=== PATIENT | female | born 1940 | race Caucasian/White ===

== ENCOUNTER → 2018-01-19 09:18 | Outpatient (CLI) | payer MEDICARE, SELFPAY ==
--- NOTE | 2018-01-19 09:30 | XR_ITS ---
XR DEXA axial skeleton HISTORY: ITS.REASON: POST MENOPAUSAL ORDERING PHYSICIAN: Agustín Gentile MD PATIENT AGE: 77 years COMPARISON: None FINDINGS: The BMD measured at the Left femoral neck is 1.184 g/cm squared with a T score of 1.0. This is considered Normal according to the World Health Organization criteria. Fracture risk is Low. The L1 L4 density has a T score of 6.5.. IMPRESSION: Normal bone density. Recommend follow-up exam December 2019
[2018-01-19 10:35] LABS: Basophils % 0.7 % (0.1-2.0); Eosinophils # 0.2 K/mm3 (0.0-0.4); Eosinophils % 3.5 % (0.1-12.0); Hematocrit 41.8 % (37.0-47.0); Hemoglobin 13.9 g/dL (12.2-16.2); Lymphocytes # 2.3 K/mm3 (0.7-4.5); Lymphocytes % 40.7 K/mm3 (10-50); Mean Corpuscular HGB Conc 33.3 g/dL (31.8-35.4); Mean Corpuscular Hemoglobin 30.1 pg (27.0-31.2); Mean Corpuscular Volume 90.5 fl (81-99); Mean Platelet Volume 7.2 fl (7.4-10.4); Monocytes # 0.3 K/mm3 (0.1-1.0); Monocytes % 4.5 % (1.7-9.3); Neutrophils # 2.9 K/mm3 (1.8-7.8); Neutrophils % 50.6 % (37.0-80.0); Platelet Count 198 K/mm3 (142-424); Red Blood Count 4.62 M/mm3 (4.20-5.40); White Blood Count 5.8 K/mm3 (4.8-10.8)
[2018-01-19 10:43] LABS: Alanine Aminotransferase 45 U/L (12-78); Albumin Level 3.8 gm/dL (3.4-5.0); Alkaline Phosphatase 49 U/L (46-116); Anion Gap 12.9 mEq/L (5-15); Aspartate Amino Transferase 28 U/L (15-37); Bilirubin,Total 0.4 mg/dL (0.2-1.0); Blood Urea Nitrogen 16 mg/dL (7-18); Calcium 8.7 mg/dL (8.5-10.1); Carbon Dioxide 29 mmol/L (21.0-32.0); Chloride 103 mmol/L (98-107); Cholesterol 225 mg/dL (140-200); Estimated Glomerular Filt Rate 53 ml/min (>60); GFR (African American) 65 ML/MIN (>60); Globulin 3.7 gm/dl (1.3-3.2); Glucose 116 mg/dL (74-106); HDL Cholesterol 45 mg/dL (29-89); LDL Cholesterol 132 mg/dL (0-130); Potassium 3.9 mmoL/L (3.5-5.1); Sodium 141 mmol/L (136-145); Total Protein,Serum 7.5 gm/dL (6.4-8.2); Triglycerides 242 mg/dL (30-200); VLDL Cholesterol 48 mg/dL (0-40)
[2018-01-22 12:55] LABS: Vitamin D 25 Hydroxy 39.7 ng/mL (30.0-100.0)
== END ==
PROVIDERS: Family Provider Internal Medicine Adolescent Medicine; PCP Internal Medicine Adolescent Medicine; Visit Provider Internal Medicine Adolescent Medicine
DX: Z13.820 Encounter for screening for osteoporosis (principal); Z78.0 Asymptomatic menopausal state; E78.5 Hyperlipidemia, unspecified; E55.9 Vitamin D deficiency, unspecified
CPT/HCPCS: 36415; 77080; 80053; 80061; 82652; 85025

== ENCOUNTER → 2019-02-11 13:01 | Outpatient (CLI) | payer MEDICARE, SELFPAY ==
[2019-02-11 13:39] LABS: Basophils # 0.1 K/mm3 (0-0.2); Basophils % 0.8 % (0.1-2.0); Eosinophils # 0.3 K/mm3 (0.0-0.4); Eosinophils % 4.3 % (0.1-12.0); Hemoglobin 12.1 g/dL (12.2-16.2); Lymphocytes # 2.3 K/mm3 (0.7-4.5); Lymphocytes % 38.3 % (10-50); Mean Corpuscular HGB Conc 31.9 g/dL (31.8-35.4); Mean Corpuscular Hemoglobin 28.8 pg (27.0-31.2); Mean Corpuscular Volume 90.2 fl (81-99); Mean Platelet Volume 7.7 fl (7.4-10.4); Monocytes # 0.3 K/mm3 (0.1-1.0); Monocytes % 5.6 % (1.7-9.3); Neutrophils # 3.1 K/mm3 (1.8-7.8); Neutrophils % 51.1 % (37.0-80.0); Platelet Count 236 K/mm3 (142-424); Red Blood Count 4.21 M/mm3 (4.20-5.40); Red Cell Distribution Width 14.5 % (11.5-17.5)
[2019-02-11 15:07] LABS: Alanine Aminotransferase 40 U/L (12-78); Albumin Level 4.1 gm/dL (3.4-5.0); Albumin/Globulin Ratio 1.1 (1.1-1.8); Alkaline Phosphatase 47 U/L (46-116); Anion Gap 12.4 mEq/L (5-15); Aspartate Amino Transferase 31 U/L (15-37); Bilirubin,Total 0.4 mg/dL (0.2-1.0); Blood Urea Nitrogen 18 mg/dL (7-18); Calcium 9.1 mg/dL (8.5-10.1); Carbon Dioxide 29 mmol/L (21.0-32.0); Chloride 104 mmol/L (98-107); Chol/HDL Ratio 4.8 (1-3.5); Cholesterol 213 mg/dL (140-200); Creatinine,Serum 0.86 mg/dL (0.55-1.02); Estimated Glomerular Filt Rate 63 ml/min (>60); GFR (African American) 77 ML/MIN (>60); Globulin 3.6 gm/dl (1.3-3.2); Glucose 94 mg/dL (74-106); HDL Cholesterol 44 mg/dL (29-89); LDL Cholesterol 130 mg/dL (0-130); Potassium 4.4 mmoL/L (3.5-5.1); Sodium 141 mmol/L (136-145); Total Protein,Serum 7.7 gm/dL (6.4-8.2); Triglycerides 195 mg/dL (30-200); VLDL Cholesterol 39 mg/dL (0-40)
[2019-02-14 06:11] LABS: Vitamin D 25 Hydroxy 49.8 ng/mL (30.0-100.0)
== END ==
PROVIDERS: Visit Provider Internal Medicine Adolescent Medicine
DX: E55.9 Vitamin D deficiency, unspecified (principal); E78.5 Hyperlipidemia, unspecified
CPT/HCPCS: 36415; 80053; 80061; 82652; 85025

== ENCOUNTER 2020-06-14 18:09 | Emergency (ER) | payer MEDICARE, OTHER, SELFPAY ==
[2020-06-14 18:11] VITALS: BP 140/79; PULSE 77; RESP 18; TEMP 37.1; O2SAT 96; BMI 28.3
--- NOTE | 2020-06-14 18:19 | XR_ITS ---
PROCEDURE: XR CHEST PORTABLE Referring Doctor: Guido Garcia Patient Age:79Y CLINICAL HISTORY: poss covid Weakness. Nausea diarrhea COMPARISON: No exams were available for comparison FINDINGS: AP portable upright CXR. No prior chest film for comparison Of the lungs are well expanded. No prominent findings but however I would question slight hazy appearance towards the right base project over the right anterior 5th rib end. Equivocal feature. Also upper normal markings at the left mid and lower lung field. The apices of lungs are clear unremarkable. The heart is upper normal in size with jackelin and mediastinal structures unremarkable. Normal pulmonary vascularity. No pleural effusions. IMPRESSION: No definitive pneumonia. No definitive acute findings However I would only question possible very subtle hazy appearance towards the lateral right base. Could merely be due to overlapping soft tissue densities, however if covidpositive could cannot exclude very subtle early infiltrate. Dictated by: Alex To MD 06/14/2020 22:00 Alex To MD in [place] 06/14/2020 22:00
[2020-06-14 18:28] LABS: Adenovirus,PCR Not Detected (NotDetected); Bordetella Pertussis Not Detected (NotDetected); Chlamydophila Pneumoniae, PCR Not Detected (NotDetected); Coronavirus 229E Not Detected (NotDetected); Coronavirus NL63 Not Detected (NotDetected); Coronavirus OC43 Not Detected (NotDetected); Coronovirus HKU1,PCR Not Detected (NotDetected); Human Metapneumovirus Not Detected (NotDetected); Influenza A, PCR Not Detected (NotDetected); Influenza AH1, 2009 Not Detected (NotDetected); Influenza AH1, PCR Not Detected (NotDetected); Influenza AH3,PCR Not Detected (NotDetected); Influenza B, PCR Not Detected (NotDetected); Mycoplasma Pneumoniae, PCR Not Detected (NotDetected); Parainfluenza 1, PCR Not Detected (NotDetected); Parainfluenza 2, PCR Not Detected (NotDetected); Parainfluenza 3, PCR Not Detected (NotDetected); Parainfluenza 4, PCR Not Detected (NotDetected); Respiratory Syncytial Virus Not Detected (NotDetected); Rhinovirus/Enterovirus Not Detected (NotDetected)
[2020-06-14 18:31] LABS: Basophils % 0.2 % (0.1-2.0); Eosinophils % 0.1 % (0.1-12.0); Hematocrit 35.1 % (37.0-47.0); Hemoglobin 10.9 g/dL (12.2-16.2); Lymphocytes # 0.9 K/mm3 (0.7-4.5); Lymphocytes % 17.1 % (10-50); Mean Corpuscular HGB Conc 31.1 g/dL (31.8-35.4); Mean Corpuscular Hemoglobin 23.4 pg (27.0-31.2); Mean Corpuscular Volume 75.4 fl (81-99); Mean Platelet Volume 8.9 fl (7.4-10.4); Monocytes # 0.2 K/mm3 (0.1-1.0); Monocytes % 4.4 % (1.7-9.3); Neutrophils % 78.2 % (37.0-80.0); Platelet Count 215 K/mm3 (142-424); Red Blood Count 4.65 M/mm3 (4.20-5.40); White Blood Count 5.1 K/mm3 (4.8-10.8)
--- NOTE | 2020-06-14 18:35 | HMH.EDGENADL ---
ED Disposition Clinical Impression: Viral syndrome, Generalized weakness Disposition: Home, Self-Care Condition on Discharge: Good Instructions: DI for Diarrhea and Traveler's Diarrhea -- Adult Referrals: Agustín Gentile MD [Primary Care Provider] - Forms: Transfer Record - ED - Critical Care Critical Care Time: No Attestation: On 06/14/20, the high probability of a clinically significant, sudden or life threatening deterioration of the following system(s) required my full and direct attention, intervention and personal management. The time I documented below is in addition to time spent performing reported procedures but includes the following listed in this critical care notation. Medical Decision Making - Medical Records Medical records reviewed: Yes: I reviewed the patient's medical records. - Augustine Inquiry Pt receiving controlled substance: No Vital Signs: 06/14/20 18:11 Temperature 98.8 F Temperature Source Oral Pulse Rate [Right] 77 Respiratory Rate 18 Blood Pressure [Right Arm] 140/79 Blood Pressure Mean [Right Arm] 99 Blood Pressure Source [Right Arm] Automatic Cuff Blood Pressure Position [Right Arm] Sitting 02 Sat by Pulse Oximetry 96 Oxygen Delivery Method Room Air - Lab Data Lab Results 06/14/20 18:20: WBC 5.1, RBC 4.65, Hgb 10.9 L, Hct 35.1 L, MCV 75.4 L, MCH 23.4 L, MCHC 31.1 L, RDW 19.0 H, Plt Count 215, MPV 8.9, Neut % (Auto) 78.2, Lymph % (Auto) 17.1, [place] % (Auto) 4.4, Eos % (Auto) 0.1, Baso % (Auto) 0.2, Neut # (Auto) 4.0, Lymph # (Auto) 0.9, [place] # (Auto) 0.2, Eos # (Auto) 0.0, Baso # (Auto) 0.0 06/14/20 18:20: Sodium 134 L, Potassium 3.6, Chloride 100, Carbon Dioxide 22, Anion Gap 15.6 H, BUN 16, Creatinine 0.90, Estimated Creat Clear 54, Estimated GFR 60, Est GFR ( Amer) 73, Glucose 247 H, Calcium 8.8, Total Bilirubin 0.4, AST 43 H, ALT 33, Alkaline Phosphatase 52, Total Protein 7.5, Albumin 4.1, Globulin 3.4 H, Albumin/Globulin Ratio 1.2, Amylase 78, Lipase 253 06/14/20 18:20: SARS-CoV-2 IgG Ab (Rapid) Negative, SARS-CoV-2 IgM Ab (Rapid) Negative Result diagrams: 06/14/20 18:20 06/14/20 18:20 Orders (Tests/Meds): ED MEDICATIONS Generic Name Dose Route Start Last Admin Trade Name Jacquelyn PRN Reason Stop Dose Admin Sodium Chloride 1,000 mls @ 999 mls/hr 06/14/20 18:30 06/14/20 18:27 Sod Chlor 0.9% 1000ml Bag IV 06/14/20 19:30 999 mls/hr .Q1H1M LOVE Administration ORDERS Category Date Time Status Chest XR -- portable [XR chest portable] Stat Exams 06/14/20 18:19 Taken Full Resp Panel w/COVID ([facility]) Routine Lab 06/14/20 18:20 Received - Reevaluation(s) Time: 19:21 Reevaluation #1: On reevaluation, patient is feeling better. Remained hemodynamic stable. There is no desaturations or respiratory distress. Patient needs to follow-up with PCP. She also had a coronavirus swab on Monday and is pending results. Patient needs to quarantine per CDC guidelines. Given strict return precautions. Verbalized understanding. Medical Decision Narrative: 79-year-old female presented with generalized weakness and diarrhea. Patient did have exposure to coronavirus. Hemodynamically stable at this time. Work-up initiated. General Adult HPI - General Chief complaint: Nausea/Vomiting/Diarrhea Stated complaint: diarrhea Time Seen by Provider: 06/14/20 18:15 Mode of Arrival: EMS Limitations: No Limitations Description of Symptoms (Recalled from ER Triage Doc. by RN): pt advises she has been feeling weak and been having diarrhea for the past 3-4 days. advises her son is currently admitted to the covid unit and they had been around each other approx 7-10 days ago - History of Present Illness HPI narrative: This is a 79-year-old female presented to the emergency department with generalized weakness. The patient has also had some diarrhea nausea. Patient states that she has had a positive sick contact for coronavirus, her son had tested positive and w
[2020-06-14 18:39] LABS: Chloride 100 mmol/L (98-107)
[2020-06-14 18:40] LABS: Potassium 3.6 mmoL/L (3.5-5.1); Sodium 134 mmol/L (136-145)
[2020-06-14 18:42] LABS: Amylase 78 U/L (30-110); Blood Urea Nitrogen 16 mg/dl (7-17); Creatinine Clearance Estimated 54 mL/min (50-200); Estimated Glomerular Filt Rate 60 ml/min (>60); GFR (African American) 73 ML/MIN (>60)
[2020-06-14 18:43] LABS: Alanine Aminotransferase 33 U/L (12-78); Albumin Level 4.1 g/dl (3.5-5.0); Albumin/Globulin Ratio 1.2 (1.1-1.8); Alkaline Phosphatase 52 U/L (38-126); Anion Gap 15.6 mEq/L (5-15); Aspartate Amino Transferase 43 U/L (14-36); Bilirubin,Total 0.4 mg/dl (0.2-1.3); Calcium 8.8 mg/dl (8.4-10.2); Carbon Dioxide 22 mmol/L (22.0-30.0); Globulin 3.4 g/dL (1.3-3.2); Glucose 247 mg/dl (74-100); Lipase 253 U/L (23-300); Total Protein,Serum 7.5 g/dl (6.3-8.2)
[2020-06-14 18:58] LABS: Coronavirus 19 IgG Antibody Negative (Negative); Coronavirus 19 IgM Antibody Negative (Negative)
[2020-06-14 19:50] LABS: Coronavirus 19, PCR Detected (NotDetected)
[2020-06-14 19:52] VITALS: BP 138/81; PULSE 96; RESP 16; TEMP 37.2; O2SAT 97
== END 2020-06-14 19:56 | disposition home or self-care (01) ==
PROVIDERS: Emergency Provider Emergency Medicine; PCP Internal Medicine Adolescent Medicine
DX: B34.9 Viral infection, unspecified (principal); Z01.84 Encounter for antibody response examination; R73.9 Hyperglycemia, unspecified
CPT/HCPCS: 71045; 80053; 82150; 83690; 85025; 86328; 87581; 87633; 87798; 96365; 99283

== ENCOUNTER 2020-06-21 07:07 | Inpatient (IN) | payer MEDICARE, OTHER, SELFPAY ==
[2020-06-21] VITALS (24 sets, daily range): BP systolic 117–154; BP diastolic 52–91; PULSE 75–106; RESP 15–22; TEMP 35.8–37.1; O2SAT 91–97; BMI 28.3; BMI 27.8; BMI 26.6
--- NOTE | 2020-06-21 07:16 | XR_ITS ---
PROCEDURE: XR CHEST PORTABLE CLINICAL HISTORY: SOA w COVID 19 COMPARISON: CR XR CHEST PORTABLE from 06/14/2020 FINDINGS: The cardiomediastinal silhouette and pulmonary vascularity are within normal limits. Patchy peripheral ground-glass attenuation noted in both mid and lower lung zones greater on the right compared to the left suspicious for Covid19 pneumonia. There are some atelectatic changes in the mid lungs on both sides. No acute bony abnormalities. IMPRESSION: Bilateral lower lobe pneumonia with atelectatic changes Dictated by: Levar Tucker MD 06/21/2020 07:53 Levar Tucker MD in [place] 06/21/2020 07:53
[2020-06-21 07:21] LABS: Microscopic, Urine URINE MICROSCOPIC (MICROSCOPIC)
--- NOTE | 2020-06-21 07:23 | HMH.EDWEAK ---
ED Disposition Clinical Impression: Pneumonia due to COVID-19 virus, Acute blood loss anemia (ABLA), Bacteriuria Disposition: Admitted As Inpatient Condition on Discharge: Fair Referrals: Agustín Gentile MD [Primary Care Provider] - - Critical Care Critical Care Time: No Attestation: On 06/21/20, the high probability of a clinically significant, sudden or life threatening deterioration of the following system(s) required my full and direct attention, intervention and personal management. The time I documented below is in addition to time spent performing reported procedures but includes the following listed in this critical care notation. Medical Decision Making - Medical Records Medical records reviewed: Yes: I reviewed the patient's medical records. - Augustine Inquiry Pt receiving controlled substance: No Vital Signs: 06/21/20 07:03 06/21/20 07:21 06/21/20 07:45 Temperature 98.4 F Temperature Source Oral Pulse Rate [Right] 94 H 91 H 89 Respiratory Rate 22 Blood Pressure [Right Arm] 140/80 128/54 L 143/64 H Blood Pressure Mean [Right Arm] 100 78 90 Blood Pressure Source [Right Arm] Automatic Cuff Automatic Cuff Blood Pressure Position [Right Arm] Sitting Sitting 02 Sat by Pulse Oximetry 94 L 94 L 96 Oxygen Delivery Method Room Air Room Air Room Air 06/21/20 08:07 06/21/20 08:30 06/21/20 09:00 Temperature Temperature Source Pulse Rate [Right] 89 89 90 Respiratory Rate Blood Pressure [Right Arm] 131/64 139/65 136/54 L Blood Pressure Mean [Right Arm] 86 89 81 Blood Pressure Source [Right Arm] Automatic Cuff Automatic Cuff Automatic Cuff Blood Pressure Position [Right Arm] Sitting Sitting Sitting 02 Sat by Pulse Oximetry 95 96 93 L Oxygen Delivery Method Room Air Room Air Room Air 06/21/20 09:32 Temperature Temperature Source Pulse Rate [Right] 76 Respiratory Rate Blood Pressure [Right Arm] 117/54 L Blood Pressure Mean [Right Arm] 75 Blood Pressure Source [Right Arm] Automatic Cuff Blood Pressure Position [Right Arm] Sitting 02 Sat by Pulse Oximetry 92 L Oxygen Delivery Method Room Air - Lab Data Lab results reviewed: Yes: I reviewed the patient's lab results. Lab Results 06/21/20 07:00: Urine Color Yellow, Urine Appearance Clear, Urine pH 7.0, Ur Specific [place] <= 1.005, Urine Protein Negative, Urine Glucose (UA) Negative, Urine Ketones Negative, Urine Blood Negative, Urine Nitrate Positive, Urine Bilirubin Negative, Urine Urobilinogen 4.0, Ur Leukocyte Esterase Negative, Urine RBC None, Urine WBC Occasional, Ur Squamous Epith Cells None, Urine Bacteria 3+ 06/21/20 07:10: WBC 9.6, RBC 3.83 L, Hgb 8.7 L, Hct 28.0 L, MCV 73.3 L, MCH 22.7 L, MCHC 31.0 L, RDW 18.8 H, Plt Count 383, MPV 7.0 L, Neut % (Auto) 82.3 H, Lymph % (Auto) 12.7, [place] % (Auto) 4.2, Eos % (Auto) 0.6, Baso % (Auto) 0.2, Neut # (Auto) 7.9 H, Lymph # (Auto) 1.2, [place] # (Auto) 0.4, Eos # (Auto) 0.1, Baso # (Auto) 0.0, ESR > 140 H 06/21/20 07:10: Sodium 132 L, Potassium 3.4 L, Chloride 97 L, Carbon Dioxide 27, Anion Gap 11.4, BUN 16, Creatinine 0.60, Estimated Creat Clear 54, Estimated GFR 96, Est GFR ( Amer) 116, Glucose 136 H, Calcium 8.8, Total Bilirubin 0.5, AST 56 H, ALT 39, Alkaline Phosphatase 60, C-Reactive Protein 84.4 H, Total Protein 7.3, Albumin 3.5, Globulin 3.8 H, Albumin/Globulin Ratio 0.9 L, Procalcitonin 0.169 06/21/20 07:58: Stool Occult Blood Positive A 06/21/20 07:58: Lactate 1.5 Result diagrams: 06/21/20 07:10 06/21/20 07:10 Orders (Tests/Meds): ED MEDICATIONS Generic Name Dose Route Start Last Admin Trade Name Freq PRN Reason Stop Dose Admin Ascorbic Acid 500 mg 06/21/20 13:00 Ascorbic Acid 500mg Tab PO 07/21/20 12:59 QID LOVE Dexamethasone Sodium Phosphate 6 mg 06/22/20 09:00 Dexamethasone 4mg/Ml 1ml Vial IV 07/22/20 08:59 DAILY [facility] Enoxaparin Sodium 40 mg 06/21/20 09:45 Enoxaparin 40mg/0.4ml Syringe SQ 07/21/20 09:44 DAILY LOVE Ergocalcif
[2020-06-21 07:27] LABS: Appearance,Urine CLEAR (Clear); Bilirubin,Urine Negative (Negative); Blood, Urine Negative (Negative); Color,Urine YELLOW (Yellow); Glucose,Urine (UA) Negative (Negative); Ketones,Urine Negative (Negative); Leukocyte Esterase,Urine Negative (Negative); Nitrate,Urine POSITIVE (Negative); Protein,Urine Negative (Negative); Specific Gravity, Urine <= 1.005 (1.005-1.030)
[2020-06-21 07:34] LABS: Basophils % 0.2 % (0.1-2.0); Eosinophils # 0.1 K/mm3 (0.0-0.4); Eosinophils % 0.6 % (0.1-12.0); Hemoglobin 8.7 g/dL (12.2-16.2); Lymphocytes # 1.2 K/mm3 (0.7-4.5); Lymphocytes % 12.7 % (10-50); Mean Corpuscular Hemoglobin 22.7 pg (27.0-31.2); Mean Corpuscular Volume 73.3 fl (81-99); Monocytes # 0.4 K/mm3 (0.1-1.0); Monocytes % 4.2 % (1.7-9.3); Neutrophils # 7.9 K/mm3 (1.8-7.8); Neutrophils % 82.3 % (37.0-80.0); Platelet Count 383 K/mm3 (142-424); Red Blood Count 3.83 M/mm3 (4.20-5.40); Red Cell Distribution Width 18.8 % (11.5-17.5); White Blood Count 9.6 K/mm3 (4.8-10.8)
[2020-06-21 07:37] LABS: Alanine Aminotransferase 39 U/L (12-78); Albumin Level 3.5 g/dl (3.5-5.0); Albumin/Globulin Ratio 0.9 (1.1-1.8); Alkaline Phosphatase 60 U/L (38-126); Anion Gap 11.4 mEq/L (5-15); Aspartate Amino Transferase 56 U/L (14-36); Bilirubin,Total 0.5 mg/dl (0.2-1.3); Blood Urea Nitrogen 16 mg/dl (7-17); Calcium 8.8 mg/dl (8.4-10.2); Carbon Dioxide 27 mmol/L (22.0-30.0); Chloride 97 mmol/L (98-107); Creatinine Clearance Estimated 54 mL/min (50-200); Estimated Glomerular Filt Rate 96 ml/min (>60); GFR (African American) 116 ML/MIN (>60); Globulin 3.8 g/dL (1.3-3.2); Glucose 136 mg/dl (74-100); Potassium 3.4 mmoL/L (3.5-5.1); Sodium 132 mmol/L (136-145); Total Protein,Serum 7.3 g/dl (6.3-8.2)
[2020-06-21 07:37] LABS: Bacteria,Urine 3+ /lpf; WBC,Urine Occasional #/hpf (0-3)
[2020-06-21 07:43] LABS: C-Reactive Protein 84.4 mg/L (0-4)
[2020-06-21 07:57] LABS: Procalcitonin 0.169 ng/mL (0.0-2.0)
[2020-06-21 08:04] LABS: Occult Blood,Stool Positive (Negative)
[2020-06-21 08:06] LABS: Erythrocyte Sedimentation Rate > 140 mm/hr (0-30)
[2020-06-21 08:13] LABS: Lactic Acid 1.5 mmol/L (0.7-2.1)
--- NOTE | 2020-06-21 09:37 | PC.NURSE ---
Dr Obrien speaking with Dr Fernandez at this time.
--- NOTE | 2020-06-21 11:14 | PC.NURSE ---
attempted to call report to second floor, nurse assigned to pt is getting report on another pt. Staff states they will have her call me.
--- NOTE | 2020-06-21 12:01 | PC.NURSE ---
attempted to call report to second floor, receiving nurse states she is in another pts room and will call me back
--- NOTE | 2020-06-21 12:09 | PC.NURSE ---
report given to Mary StewartRN
--- NOTE | 2020-06-21 12:15 | HMH.PHAINT ---
MEDICATION RECONCILIATION COMPLETED ON PATIENT USING EXTERNAL FILL HISTORY FROM PHARMACY. -BINA FERNÁNDEZ, TONIAD
--- NOTE | 2020-06-21 12:19 | PC.NURSE ---
Dr. Fernandez at BS
--- NOTE | 2020-06-21 12:36 | PC.NURSE ---
Pt arrived to the floor at this time.
--- NOTE | 2020-06-21 13:56 | HMH.HP ---
*Admission Date: 06/21/20 *Chief complaint: fatigue, weakness, COVID-19 *History of present illness: Ms. Alba is a pleasant 79-year-old female who presented to the ER today due to significant fatigue and weakness. Came into the ER on the and was diagnosed with COVID-19. Had presented with GI symptoms, diarrhea, nausea, fatigue. Has been tolerating good fluid intake but poor appetite. Intermittent fever over the past 2 nights. Denies significant respiratory distress. Has minimal dry cough. Overall just feels ill and fatigued. On assessment today, she is unable to walk more than a few steps before having to sit because of exhaustion. Is stable on room air satting in the low 90s. Tachycardic on exam. Family who she lives with and who cares for her is also ill with COVID-19 and unable to care for her at this time. Patient is unable to care for herself in the home setting and was therefore admitted for observation and treatment of her COVID-19 symptoms. On my interview, she reports being thirsty, fatigued, but denies significant GI or respiratory symptoms. [facility] History *Have you ever received a pneumonia vaccine?: Yes *Have you received a flu vaccine this season?: Yes Other Medical History: Reports: Cataracts, Thyroid Disease Other Surgeries: Yes: Thyroidectomy - *Social History Last grade of school completed: 9th or 10th Smoking Status: Never smoker Alcohol Intake: never *Occupational Status:: retired Housing: house Household Members: none *Travel in the last 8 weeks: None Review of Systems - *Neurologic Reports weakness, Denies seizure-like activity Meds Home Medications Medication Instructions Recorded Confirmed Type Metoprolol Tartrate 50 mg PO BID 06/21/20 06/21/20 History Pantoprazole Sodium 20 mg PO DAILYP PRN 06/21/20 06/21/20 History Allergies Allergy/AdvReac Type Severity Reaction Status Date / Time cephalexin [From Keflex] Allergy Verified 06/21/20 07:08 Exam Vital signs and Labs for Last 24 Hours: Temp Pulse Resp BP Pulse Ox 98.4 F 98 H 22 139/52 L 92 L 06/21/20 13:09 06/21/20 13:09 06/21/20 13:09 06/21/20 13:09 06/21/20 12:00 Laboratory Results - last 24 hr 06/21/20 07:00: Urine Color Yellow, Urine Appearance Clear, Urine pH 7.0, Ur Specific [place] <= 1.005, Urine Protein Negative, Urine Glucose (UA) Negative, Urine Ketones Negative, Urine Blood Negative, Urine Nitrate Positive, Urine Bilirubin Negative, Urine Urobilinogen 4.0, Ur Leukocyte Esterase Negative, Urine RBC None, Urine WBC Occasional, Ur Squamous Epith Cells None, Urine Bacteria 3+ 06/21/20 07:10: WBC 9.6, RBC 3.83 L, Hgb 8.7 L, Hct 28.0 L, MCV 73.3 L, MCH 22.7 L, MCHC 31.0 L, RDW 18.8 H, Plt Count 383, MPV 7.0 L, Neut % (Auto) 82.3 H, Lymph % (Auto) 12.7, [place] % (Auto) 4.2, Eos % (Auto) 0.6, Baso % (Auto) 0.2, Neut # (Auto) 7.9 H, Lymph # (Auto) 1.2, [place] # (Auto) 0.4, Eos # (Auto) 0.1, Baso # (Auto) 0.0, ESR > 140 H 06/21/20 07:10: Sodium 132 L, Potassium 3.4 L, Chloride 97 L, Carbon Dioxide 27, Anion Gap 11.4, BUN 16, Creatinine 0.60, Estimated Creat Clear 54, Estimated GFR 96, Est GFR ( Amer) 116, Glucose 136 H, Calcium 8.8, Total Bilirubin 0.5, AST 56 H, ALT 39, Alkaline Phosphatase 60, C-Reactive Protein 84.4 H, Total Protein 7.3, Albumin 3.5, Globulin 3.8 H, Albumin/Globulin Ratio 0.9 L, Procalcitonin 0.169 06/21/20 07:10: Blood Type Confirm O Positive 06/21/20 07:58: Stool Occult Blood Positive A 06/21/20 07:58: Lactate 1.5 06/21/20 10:00: Blood Type O Positive, Antibody Screen Negative, Crossmatch (AHG) See Detail I & O for Last 24 hours: Intake & Output 06/18/20 06/19/20 06/20/20 06/21/20 23:59 23:59 23:59 23:59 Intake Total 1000 / 1000 Balance 1000 / 1000 Weight 75.75 kg
--- NOTE | 2020-06-21 14:03 | HMH.HP ---
*Admission Date: 06/21/20 *Chief complaint: SOA, fatigue, Covid-19 *History of present illness: Ms. Alba is a pleasant 79-year-old female who presented to the ER today due to significant fatigue and weakness. Came into the ER on the and was diagnosed with COVID-19. Had presented with GI symptoms, diarrhea, nausea, fatigue. Has been tolerating good fluid intake but poor appetite. Intermittent fever over the past 2 nights. Denies significant respiratory distress. Has minimal dry cough. Overall just feels ill and fatigued. On assessment today, she is unable to walk more than a few steps before having to sit because of exhaustion. Is stable on room air satting in the low 90s. Tachycardic on exam. Family who she lives with and who cares for her is also ill with COVID-19 and unable to care for her at this time. Labs remarkable for an acute worsening of her anemia in the interim since last visit. Hemoccult was positive. Patient is unable to care for herself in the home setting and was therefore admitted for observation and treatment of her COVID-19 symptoms. On my interview, she reports being thirsty, fatigued, but denies significant GI or respiratory symptoms. [facility] History Medical History: Reports:: Hypertension *Have you ever received a pneumonia vaccine?: Yes *Have you received a flu vaccine this season?: Yes Other Medical History: Reports: Cataracts, Thyroid Disease Other Surgeries: Yes: Thyroidectomy - *Social History Last grade of school completed: 9th or 10th Smoking Status: Never smoker Alcohol Intake: never *Occupational Status:: retired Housing: house Household Members: none *Travel in the last 8 weeks: None Family Hx:: No significant family history Review of Systems - *Neurologic Reports weakness, Denies seizure-like activity Meds Home Medications Medication Instructions Recorded Confirmed Type Metoprolol Tartrate 50 mg PO BID 06/21/20 06/21/20 History Pantoprazole Sodium 20 mg PO DAILYP PRN 06/21/20 06/21/20 History Allergies Allergy/AdvReac Type Severity Reaction Status Date / Time cephalexin [From Keflex] Allergy Verified 06/21/20 07:08 Exam Vital signs and Labs for Last 24 Hours: Temp Pulse Resp BP Pulse Ox 98.4 F 98 H 22 139/52 L 92 L 06/21/20 13:06/21/20 13:06/21/20 13:06/21/20 13:06/21/20 12:00 Laboratory Results - last 24 hr 06/21/20 07:00: Urine Color Yellow, Urine Appearance Clear, Urine pH 7.0, Ur Specific [place] <= 1.005, Urine Protein Negative, Urine Glucose (UA) Negative, Urine Ketones Negative, Urine Blood Negative, Urine Nitrate Positive, Urine Bilirubin Negative, Urine Urobilinogen 4.0, Ur Leukocyte Esterase Negative, Urine RBC None, Urine WBC Occasional, Ur Squamous Epith Cells None, Urine Bacteria 3+ 06/21/20 07:10: WBC 9.6, RBC 3.83 L, Hgb 8.7 L, Hct 28.0 L, MCV 73.3 L, MCH 22.7 L, MCHC 31.0 L, RDW 18.8 H, Plt Count 383, MPV 7.0 L, Neut % (Auto) 82.3 H, Lymph % (Auto) 12.7, [place] % (Auto) 4.2, Eos % (Auto) 0.6, Baso % (Auto) 0.2, Neut # (Auto) 7.9 H, Lymph # (Auto) 1.2, [place] # (Auto) 0.4, Eos # (Auto) 0.1, Baso # (Auto) 0.0, ESR > 140 H 06/21/20 07:10: Sodium 132 L, Potassium 3.4 L, Chloride 97 L, Carbon Dioxide 27, Anion Gap 11.4, BUN 16, Creatinine 0.60, Estimated Creat Clear 54, Estimated GFR 96, Est GFR ( Amer) 116, Glucose 136 H, Calcium 8.8, Total Bilirubin 0.5, AST 56 H, ALT 39, Alkaline Phosphatase 60, C-Reactive Protein 84.4 H, Total Protein 7.3, Albumin 3.5, Globulin 3.8 H, Albumin/Globulin Ratio 0.9 L, Procalcitonin 0.169 06/21/20 07:10: Blood Type Confirm O Positive 06/21/20 07:58: Stool Occult Blood Positive A 06/21/20 07:58: Lactate 1.5 06/21/20 10:00: Blood Type O Positive, Antibody Screen Negative, Crossmatch (AHG) See Detail I & O for Last 24 hours: Intake & Output 06/18/20 06/19/20 06/20/20 06/21/20 23:59 23:59 23:59 23:59 Intake Total 1000 / 1000 Balance 1000 / 1000 Weight 75.75 kg - Constitutional
--- NOTE | 2020-06-21 15:16 | P.CONPHA_ITS ---
[facility] Pharmacy VTE Monitoring - Patient Demographics Admission date: 06/21/20 Report Date: 06/21/20 Time: 15:16 Allergies/Adverse Reactions: Patient Allergies cephalexin [From Keflex] Allergy (Verified 06/21/20 07:08) Height: 1.65 m Weight: 75.75 kg Patient Problems: Current Active Problems Viral syndrome (Acute) Generalized weakness (Acute) Pneumonia due to COVID-19 virus (Acute) Acute blood loss anemia (ABLA) (Acute) Bacteriuria (Acute) Hypertension (Chronic) - VTE Risk Labs: VTE Related Lab Results Hgb 8.7 g/dL (12.2-16.2) L 06/21/20 07:10 Hct 28.0 % (37.0-47.0) L 06/21/20 07:10 Plt Count 383 K/mm3 (142-424) 06/21/20 07:10 BUN 16 mg/dl (7-17) 06/21/20 07:10 Creatinine 0.60 mg/dl (0.52-1.04) 06/21/20 07:10 Estimated Creat Clear 54 mL/min (50-200) 06/21/20 07:10 VTE Score: 3 VTE Risk Level: Low Risk - Prophylaxis VTE Prophylaxis Ordered?: Yes Types of VTE Prophylaxis: TEDS Knee High Location of Applied Device: Bilateral Lower Extremeties
[2020-06-21 18:47] LABS: Hemoglobin 8.9 g/dL (12.2-16.2)
[2020-06-21 18:49] LABS: Hematocrit 28.6 % (37.0-47.0)
--- NOTE | 2020-06-21 19:27 | PC.NURSE ---
Patient is currently sleeping Neuro: Alert and oriented x 4 Pulm: Room air, lungs clear. Respirations even. Sattin' 95% on room air. Cardiac: No issues. GI: patient has had 1 bowel movement today, stool was dark and foul. C/o slight nausea today. : Hernandez catheter in place. 1600 cc of urine output today. SKIN: no issues or concerns. Patient stated during assessment that she wished to be a DNI, however, patient states that she wanted to change her decision and be intubated should the need arise, being a modified code. Advised patient to discuss this with MD and case management in the morning. Patient was anxious upon admission about her condition. Patient was reassured and has since done much better.
[2020-06-22] VITALS: BP 138/78; PULSE 77; RESP 20; TEMP 36.9; O2SAT 94
[2020-06-22 04:00] VITALS: BP 126/70; PULSE 83; RESP 17; TEMP 36.4; O2SAT 96
[2020-06-22 05:23] VITALS: BMI 26.9
[2020-06-22 07:17] LABS: Basophils % 0.3 % (0.1-2.0); Hemoglobin 8.6 g/dL (12.2-16.2); Lymphocytes # 1.1 K/mm3 (0.7-4.5); Lymphocytes % 13.8 % (10-50); Mean Corpuscular HGB Conc 31.7 g/dL (31.8-35.4); Mean Corpuscular Hemoglobin 23.5 pg (27.0-31.2); Mean Corpuscular Volume 74.1 fl (81-99); Mean Platelet Volume 7.9 fl (7.4-10.4); Monocytes # 0.4 K/mm3 (0.1-1.0); Neutrophils # 6.1 K/mm3 (1.8-7.8); Neutrophils % 80.9 % (37.0-80.0); Platelet Count 391 K/mm3 (142-424); Red Blood Count 3.65 M/mm3 (4.20-5.40); Red Cell Distribution Width 18.4 % (11.5-17.5); White Blood Count 7.6 K/mm3 (4.8-10.8)
[2020-06-22 07:29] LABS: Alanine Aminotransferase 31 U/L (12-78); Albumin Level 2.8 g/dl (3.5-5.0); Albumin/Globulin Ratio 0.8 (1.1-1.8); Alkaline Phosphatase 51 U/L (38-126); Anion Gap 9.4 mEq/L (5-15); Aspartate Amino Transferase 38 U/L (14-36); Bilirubin,Total 0.4 mg/dl (0.2-1.3); Blood Urea Nitrogen 15 mg/dl (7-17); Carbon Dioxide 24 mmol/L (22.0-30.0); Chloride 106 mmol/L (98-107); Creatinine Clearance Estimated 51 mL/min (50-200); Estimated Glomerular Filt Rate 118 ml/min (>60); GFR (African American) 143 ML/MIN (>60); Globulin 3.3 g/dL (1.3-3.2); Glucose 136 mg/dl (74-100); Magnesium 2.1 mg/dl (1.6-2.3); Potassium 3.4 mmoL/L (3.5-5.1); Sodium 136 mmol/L (136-145); Total Protein,Serum 6.1 g/dl (6.3-8.2)
[2020-06-22 08:00] VITALS: BP 125/66; PULSE 80; RESP 18; TEMP 36.5; O2SAT 95
--- NOTE | 2020-06-22 08:35 | HMH.ACPN2 ---
Internal Medicine - PN: Subj *Date: 06/22/20 *Time: 08:35 Interval history: Overall patient feels better than yesterday. No significant diarrhea or vomiting. Feels very weak. Breathing seems to be improved per patient's report. She is alert and pleasant. Exam Vital signs and Labs for Last 24 Hours: Temp Pulse Resp BP Pulse Ox 97.5 F L 83 17 126/70 96 06/22/20 04:00 06/22/20 04:00 06/22/20 04:00 06/22/20 04:00 06/22/20 04:00 Laboratory Results - last 24 hr 06/21/20 07:10: Blood Type Confirm O Positive 06/21/20 10:00: Blood Type O Positive, Antibody Screen Negative, Crossmatch (AHG) See Detail 06/21/20 18:41: Hgb 8.9 L, Hct 28.6 L 06/22/20 06:33: WBC 7.6, RBC 3.65 L, Hgb 8.6 L, Hct 27.0 L, MCV 74.1 L, MCH 23.5 L, MCHC 31.7 L, RDW 18.4 H, Plt Count 391, MPV 7.9, Neut % (Auto) 80.9 H, Lymph % (Auto) 13.8, [place] % (Auto) 5.0, Eos % (Auto) 0.0 L, Baso % (Auto) 0.3, Neut # (Auto) 6.1, Lymph # (Auto) 1.1, [place] # (Auto) 0.4, Eos # (Auto) 0.0, Baso # (Auto) 0.0 06/22/20 06:33: Sodium 136, Potassium 3.4 L, Chloride 106, Carbon Dioxide 24, Anion Gap 9.4, BUN 15, Creatinine 0.50 L, Estimated Creat Clear 51, Estimated GFR 118, Est GFR ( Amer) 143 D, Glucose 136 H, Calcium 8.0 L, Magnesium 2.1, Total Bilirubin 0.4, AST 38 H D, ALT 31, Alkaline Phosphatase 51, Total Protein 6.1 L, Albumin 2.8 L D, Globulin 3.3 H, Albumin/Globulin Ratio 0.8 L I & O for Last 24 hours: Intake & Output 06/19/20 06/20/20 06/21/2021 11:59 11:59 11:59 11:59 Intake Total 3052 / 3052 Output Total 3560 / 3560 Balance -508 / -508 Weight 170 lb 161 lb 6 oz Microbiology Reports for the Last 24 Hours: Microbiology 06/21/20 07:00 Urine,Catheterized Urine Culture - Preliminary NO GROWTH AFTER 24 HOURS Narrative: Patient is pleasant, alert, oriented x3. Oropharynx clear, no JVD. Heart rate regular. Lungs have good air expansion. Abdomen soft and nontender, no masses. Skin is slightly pale but dry and intact and warm. Good distal perfusion. Assessment and Plan (1) Pneumonia due to COVID-19 virus Status: Acute Category: Medical Code(s): U07.1 - COVID-19; J12.82 - Pneumonia due to coronavirus disease 2018 (2) Acute blood loss anemia (ABLA) Status: Acute Category: Medical Code(s): D62 - Acute posthemorrhagic anemia (3) Generalized weakness Status: Acute Category: Medical Code(s): R53.1 - Weakness (4) Viral syndrome Status: Acute Category: Medical Code(s): B34.9 - Viral infection, unspecified (5) Hypertension Status: Chronic Qualifiers: Hypertension type: essential hypertension Qualified Code(s): I10 - Essential (primary) hypertension Category: Medical Code(s): I10 - Essential (primary) hypertension - Assessment and plan all Dx Assessment and Plan for all problems:: Seems to be recovering well but slowly from Covid pneumonitis and viral infection. PT/OT evaluation for possible need for skilled rehab stay for short-term issues given her family's current status with COVID-19. Anemia did not respond very much to 1 unit of packed cells. Does not seem to be actively bleeding. Observe tomorrow with CBC. Continue Protonix for upper GI tract protection.
--- NOTE | 2020-06-22 14:09 | HMH.PTEV ---
Physical Therapy Evaluation Rehab PT IP Evaluation Start: 06/22/20 11:24 Freq: ONCE Status: Active Protocol: Document 06/22/20 14:03 SURINDERHUMBERTO (Rec: 06/22/20 14:09 SURINDERHUMBERTO [id number]) Subjective/History History History Ms. Alba is a pleasant 79 -year-old female who presented to the ER today due to significant fatigue and weakness. Came into the ER on the and was diagnosed with COVID-19. Had presented with GI symptoms, diarrhea, nausea, fatigue. Has been tolerating good fluid intake but poor appetite. Intermittent fever over the past 2 nights. Denies significant respiratory distress. Has minimal dry cough. Overall just feels ill and fatigued. On assessment today, she is unable to walk more than a few steps before having to sit because of exhaustion. Is stable on room air satting in the low 90s. Tachycardic on exam. Family who she lives with and who cares for her is also ill with COVID-19 and unable to care for her at this time. Labs remarkable for an acute worsening of her anemia in the interim since last visit. Hemoccult was positive. Patient is unable to care for herself in the home setting and was therefore admitted for observation and treatment of her COVID-19 symptoms. Subjective Subjective Pt does have reports of fatigue after standing 2-3 minutes Rehab PT IP Eval Objective Appearance Patient Behavior Appropriate,Cooperative Patient Orientation Person,Place,Time Difficulty following instructions none Speech Pattern Clear,Appropriate Ambulation Patient Able to Ambulate Yes Ambulation Observation IP General Gait Pattern Observation Shuffling Step Ambulation Distance (feet) 5 Ambulation Assistive Device
[2020-06-22 14:20] VITALS: BMI 26.8
--- NOTE | 2020-06-22 15:06 | HMH.OTEV ---
OT Inpatient Evaluation Rehab OT IP Evaluation Start: 06/22/20 11:24 Freq: ONCE Status: Complete Protocol: Document 06/22/20 14:57 [facility] (Rec: 06/22/20 15:06 [facility] [id number]) Rehab OT IP Assessment Subjective History Pt oriented x 3 on arrival. Pt agreeable to engage in therapy evaluation. Pt was admitted via ED on 06/21/20 due to increased fatigue, weakness, and SOA from COVID- 19. Pt reports prior to being hospitalized she lived at home alone. Pt claims prior to hopsitalization she was independent with all ADLs and IADL's. Pt did not require AE during ambulation and she still drove. Subjective I am already tired. Pt stood in between bed and chair during transfer for ~2 minutes and reported she started feeling weak. Objective Patient Orientation Person,Place,Day of Month Upper Extremity Gross ROM WFL Bed Mobility bed mobility-scooting,bed mobility - supine/sit,bed mobility - rolling Assist Level Supervision/Stand by Transfer Training Sit/Stand Transfer Assist Level Contact Guard/Hand Hold Chair Transfer Ability Contact Guard/Hand Hold Chair Transfer Technique Sit to/from Ambulatory Chair Transfer Assistive Devices None Rehab OT IP prob,goals,plan Problems Date of Evaluation: 06/22/20 OT IP Problems Bed Mobility,Transfers,Gait, Balance,Self care,Safety Rehab Potential Rehab Potential Good Equipment Needs Assistive Devices Rolling / Wheeled Walker Plan OT intervention Plan Bed Mobility,Transfers,Gait, Balance,Self care,Safety, Therapeutic Exercise OT Plan Frequency Daily Duration LOS Discharge Goals Bed Mobility Ability Standby Assistance Sit to Stand Chair Transfer Ability Supervision/Stand by Chair Transfer Ability Supervision/Stand by Chair Transfer Technique Sit to/from Ambulatory Chair Transfer Assistive Devices Rolling Walker Self care skills fully toilet trained,uses utensils to feed self Feeding Ability Independen
[2020-06-22 15:36] VITALS: BP 132/72; PULSE 79; RESP 18; TEMP 36.6; O2SAT 97
--- NOTE | 2020-06-22 19:17 | PC.NURSE ---
PATIENT REMAINS A&O X4, LUNGS: WHEEZING HEARD, PULSES EQUAL. PATIENT UP TO CHAIR, TOLERATED WELL. PATIENT SAT ON SIDE OF BED FOR EACH MEAL, TOLERATED WELL. NO NEW CONCERNS DURING THIS RN SHIFT.
[2020-06-22 20:00] VITALS: BP 145/70; PULSE 83; RESP 17; TEMP 36.6; O2SAT 93
[2020-06-23] VITALS (7 sets, daily range): BP systolic 128–168; BP diastolic 70–93; PULSE 74–85; RESP 17–20; TEMP 36.4–37; O2SAT 93–97; BMI 27.1
--- NOTE | 2020-06-23 04:22 | PC.NURSE ---
PT. C/O H/A AT BEGINNING OF SHIFT; TX WITH TYLENOL PER JUL. PT. HAS NOT C/O N/V/D, SOA OR DIZZINESS. DIMINISHED LUNG SOUNDS T/O BILAT. NO COUGH REPORTED 96-97% O2 SAT ON RA.
[2020-06-23 05:39] LABS: Basophils % 0.2 % (0.1-2.0); Eosinophils % 0.4 % (0.1-12.0); Hematocrit 26.5 % (37.0-47.0); Hemoglobin 8.3 g/dL (12.2-16.2); Lymphocytes % 12.7 % (10-50); Mean Corpuscular HGB Conc 31.3 g/dL (31.8-35.4); Mean Corpuscular Hemoglobin 23.3 pg (27.0-31.2); Mean Corpuscular Volume 74.4 fl (81-99); Mean Platelet Volume 7.6 fl (7.4-10.4); Monocytes # 0.5 K/mm3 (0.1-1.0); Monocytes % 6.2 % (1.7-9.3); Neutrophils # 6.5 K/mm3 (1.8-7.8); Neutrophils % 80.6 % (37.0-80.0); Platelet Count 445 K/mm3 (142-424); Red Blood Count 3.57 M/mm3 (4.20-5.40); Red Cell Distribution Width 18.6 % (11.5-17.5); White Blood Count 8.1 K/mm3 (4.8-10.8)
[2020-06-23 05:50] LABS: Alanine Aminotransferase 35 U/L (12-78); Albumin Level 2.7 g/dl (3.5-5.0); Albumin/Globulin Ratio 0.8 (1.1-1.8); Alkaline Phosphatase 50 U/L (38-126); Anion Gap 9.6 mEq/L (5-15); Aspartate Amino Transferase 42 U/L (14-36); Bilirubin,Total 0.4 mg/dl (0.2-1.3); Blood Urea Nitrogen 18 mg/dl (7-17); Carbon Dioxide 23 mmol/L (22.0-30.0); Chloride 106 mmol/L (98-107); Creatinine Clearance Estimated 52 mL/min (50-200); Estimated Glomerular Filt Rate 96 ml/min (>60); GFR (African American) 116 ML/MIN (>60); Globulin 3.2 g/dL (1.3-3.2); Glucose 136 mg/dl (74-100); Potassium 3.6 mmoL/L (3.5-5.1); Sodium 135 mmol/L (136-145); Total Protein,Serum 5.9 g/dl (6.3-8.2)
--- NOTE | 2020-06-23 09:06 | PC.NURSE ---
f/c d/c'd at this time. patient instructed to call for assistance to bathroom. patient verbalized understanding. nonskid socks placed on patient.
--- NOTE | 2020-06-23 10:25 | SW/DCPLANNER ---
Addendum entered by Love Randall 06/24/20 09:38: PATIENT IS DISCHARGING TO [facility] TODAY AND WILL BE SKILLED UNDER HER MEDICARE BENEFIT..... Addendum entered by Love Randall 06/24/20 08:24: SPOKE WITH PATIENT VIA TELEPHONE THIS MORNING AND TOLD HER THAT I HAD GOTTEN A MESSAGE FROM [facility] AND THEY CAN NOT TAKE PATIENT UNLESS SHE IS 14 DAYS STATUS POST COVID AND SHE IS ONLY TEN DAYS... I TOLD PATIENT AND SHE REQUESTED ONE OF THE [place] [facility]AC[facility]ITIES....I DID SEND IT TO [facility] AND WHEN DR LOBATO MADE ROUNDS HE ASKED IF SHE WOULD BE INTERESTED IN [facility] AND TOLD HER HE GOES THERE AND SHE IS ALLOWING ME TO SEND IT THERE.. WAITING ON A CALL TO SEE IF ACCEPTED, SHE IS MEDICALLY READY TO MAKE A MOVE SOMETIME TODAY IF ACCEPTED BY EITHER OF THE SKILLED FACILITIES... Addendum entered by Love Randall 06/23/20 13:36: [facility] DOES NOT HAVE ANY FEMALE BEDS BUT PATIENT ASKED ABOUT [facility], I HAVE SENT IT TO [facility] [place] AND SENT A MESSAGE AND THEY DO HAVE BEDS.. WAITING TO HEAR TO WHETHER ACCEPTED OR NOT.... Original Note: SPOKE WITH PATIENT VIA TELEPHONE R/T POSITIVE COVID.... PT STATED PATIENT DID WELL BUT VERY WEAK AND COULD BENEFIT FROM SOME SKILLED REHAB SERVICES...I ASKED HER IF SHE WANTED TO GO SOMEWHERE AND SHE STATED YES FOR SHORT TERM.. HER PLANS ARE TO RETURN HOME AFTER SHE IS WELL ENOUGH TO DO SO...I SENT REFERRAL TO [facility] AND THEY DO NOT HAVE ANY BEDS.. WILL REACH OUT TO HER AGAIN TO SEE WHERE ELSE SHE WOULD LIKE TO GO....WILL FOLLOW UP THIS AFTERNOON...
--- NOTE | 2020-06-23 11:13 | HMH.ACPN2 ---
Internal Medicine - PN: Subj *Date: 06/23/20 *Time: 11:13 Interval history: Ms. Alba continues to be quite fatigued this morning. Still has Hernandez catheter in place. While able to work with physical therapy yesterday, is unable to get to the bedside chair by herself. Lives alone. Had a daughter staying with her prior to admission but her daughter also has Covid and is quite weak. Does not feel comfortable going home. Tolerating p.o. intake. No nausea vomiting or diarrhea. No shortness of breath. Review of labs shows urine from admission is now growing bacteria concerning for UTI. Antibiotics initiated this morning. Patient afebrile Exam Vital signs and Labs for Last 24 Hours: Temp Pulse Resp BP Pulse Ox 98.6 F 74 18 131/70 95 06/23/20 08:00 06/23/20 08:00 06/23/20 08:00 06/23/20 08:00 06/23/20 08:00 Laboratory Results - last 24 hr 06/23/20 05:16: WBC 8.1, RBC 3.57 L, Hgb 8.3 L, Hct 26.5 L, MCV 74.4 L, MCH 23.3 L, MCHC 31.3 L, RDW 18.6 H, Plt Count 445 H, MPV 7.6, Neut % (Auto) 80.6 H, Lymph % (Auto) 12.7, Lee % (Auto) 6.2, Eos % (Auto) 0.4, Baso % (Auto) 0.2, Neut # (Auto) 6.5, Lymph # (Auto) 1.0, Lee # (Auto) 0.5, Eos # (Auto) 0.0, Baso # (Auto) 0.0 06/23/20 05:16: Sodium 135 L, Potassium 3.6, Chloride 106, Carbon Dioxide 23, Anion Gap 9.6, BUN 18 H, Creatinine 0.60, Estimated Creat Clear 52, Estimated GFR 96, Est GFR ( Amer) 116, Glucose 136 H, Calcium 8.0 L, Total Bilirubin 0.4, AST 42 H, ALT 35, Alkaline Phosphatase 50, Total Protein 5.9 L, Albumin 2.7 L, Globulin 3.2, Albumin/Globulin Ratio 0.8 L I & O for Last 24 hours: Intake & Output 06/20/20 06/21/20 06/22/20 06/23/20 23:59 23:59 23:59 23:59 Intake Total 2048 / 2408 2444 / 2444 1621 / 1621 Output Total 3200 / 3200 910 / 910 775 / 775 Balance -1152 / -792 1534 / 1534 846 / 846 Weight 72.773 kg 73 kg 74.021 kg Microbiology Reports for the Last 24 Hours: Microbiology 06/21/20 07:56 Blood Blood Culture - Preliminary NO GROWTH AFTER 48 HOURS 06/21/20 07:58 Blood Blood Culture - Preliminary NO GROWTH AFTER 48 HOURS 06/21/20 07:00 Urine,Catheterized Urine Culture - Preliminary Gram Negative Rods - Constitutional no acute distress Comments: Quite fatigued, - *Routine HEENT Exam Head: Present: normocephalic Eye: Present: EOMI, PERRL ENT: Present: mucous membranes moist - *Routine Neck Exam Present: supple. Absent: lymphadenopathy - *Routine Respiratory Exam Present: CTA bilaterally - *Routine Cardiovascular Exam Present: RRR - *Routine Abdominal Exam Present: soft, normoactive bowel sounds. Absent: tenderness - *Routine Extremities Exam Absent: cyanosis, clubbing, edema - Routine Back/Spine/Pelvis Exam Back/Spine: Absent: CVA tenderness - *Routine Skin Exam Present: warm. Absent: rash - *Routine Neurological Exam Present: alert, oriented X3 Assessment and Plan (1) Pneumonia due to COVID-19 virus Status: Acute Category: Medical Code(s): U07.1 - COVID-19; J12.82 - Pneumonia due to coronavirus disease 2019 (2) Acute blood loss anemia (ABLA) Status: Acute Category: Medical Code(s): D62 - Acute posthemorrhagic anemia (3) Generalized weakness Status: Acute Category: Medical Code(s): R53.1 - Weakness (4) Viral syndrome Status: Acute Category: Medical Code(s): B34.9 - Viral infection, unspecified (5) Hypertension Status: Chronic Qualifiers: Hypertension type: essential hypertension Qualified Code(s): I10 - Essential (primary) hypertension Category: Medical Code(s): I10 - Essential (primary) hypertension (6) UTI (urinary tract infection) Status: Acute Qualifiers: Urinary tract infection type: acute cystitis Hematuria presence: without hematuria Qualified Code(s): N30.00 - Acute cystitis without hematuria Category: Medical Code(s):
--- NOTE | 2020-06-23 22:27 | PC.NURSE ---
PATIENT IS A7O X4, LUNGS ARE DIMINISHED WITH AUDIBLE WHEEZING, PULSES ARE EQUAL. DURING PATIENT ROUNDS THIS RN NOTICED THAT PATIENT SEEMS TO BE SOA. THIS RN ASSESSED O2, PATIENT WAS 96% RA. THIS RN INQUIRED IF PATIENT FELT SOA, PATIENT DENIED ANY SOA. PATIENT DID STATE 3X DURING THIS RN SHIFT THAT SHE HAD EPISODES OF FEELING WEEK. THIS RN EXPLAINED THAT SHE WOULD CONTINUE TO HAVE THESE SYMPTOMS HER BODY HEALS, PATIENT VERBALIZED AN UNDERSTANDING. PATIENT HAS HAD A HEALTHY APPETITE DURING THIS RN SHIFT. NO OTHER CONCERNS AT THIS TIME.
[2020-06-24 04:00] VITALS: BP 153/84; PULSE 82; RESP 19; TEMP 36.6; O2SAT 92
[2020-06-24 06:27] LABS: Hematocrit 27.1 % (37.0-47.0); Hemoglobin 8.1 g/dL (12.2-16.2)
[2020-06-24 06:58] LABS: Alanine Aminotransferase 40 U/L (12-78); Albumin Level 2.8 g/dl (3.5-5.0); Albumin/Globulin Ratio 0.9 (1.1-1.8); Alkaline Phosphatase 53 U/L (38-126); Anion Gap 9.4 mEq/L (5-15); Aspartate Amino Transferase 49 U/L (14-36); Bilirubin,Total 0.3 mg/dl (0.2-1.3); Blood Urea Nitrogen 18 mg/dl (7-17); Carbon Dioxide 24 mmol/L (22.0-30.0); Chloride 105 mmol/L (98-107); Creatinine Clearance Estimated 52 mL/min (50-200); Estimated Glomerular Filt Rate 80 ml/min (>60); GFR (African American) 97 ML/MIN (>60); Globulin 3.1 g/dL (1.3-3.2); Glucose 102 mg/dl (74-100); Potassium 3.4 mmoL/L (3.5-5.1); Sodium 135 mmol/L (136-145); Total Protein,Serum 5.9 g/dl (6.3-8.2)
[2020-06-24 06:59] LABS: Magnesium 2.4 mg/dl (1.6-2.3)
[2020-06-24 07:37] VITALS: BP 173/99; PULSE 74; RESP 20; TEMP 36.4; O2SAT 91
[2020-06-24 07:54] VITALS: BMI 27.2
[2020-06-24 08:00] VITALS: PULSE 74; RESP 20; O2SAT 91
--- NOTE | 2020-06-24 08:27 | HMH.DCSUM ---
General - General Admission date:: 06/21/20 Discharge date: 06/24/20 HPI HPI: Ms. Alba is a pleasant 79-year-old female who presented to the ER today due to significant fatigue and weakness. Came into the ER on the and was diagnosed with COVID-19. Had presented with GI symptoms, diarrhea, nausea, fatigue. Has been tolerating good fluid intake but poor appetite. Intermittent fever over the past 2 nights. Denies significant respiratory distress. Has minimal dry cough. Overall just feels ill and fatigued. On assessment today, she is unable to walk more than a few steps before having to sit because of exhaustion. Is stable on room air satting in the low 90s. Tachycardic on exam. Family who she lives with and who cares for her is also ill with COVID-19 and unable to care for her at this time. Labs remarkable for an acute worsening of her anemia in the interim since last visit. Hemoccult was positive. Patient is unable to care for herself in the home setting and was therefore admitted for observation and treatment of her COVID-19 symptoms. On my interview, she reports being thirsty, fatigued, but denies significant GI or respiratory symptoms. Hospital Course Hospital Course: Patient was admitted, given 1 unit of packed cells which really did not improve her anemia, and had no further evidence of GI bleeding. She did not require oxygen support over most of her hospital stay but was extremely weak given her COVID-19 infection. All of her family has Covid and they are unable to give her a lot of physical/nutritional therapy support at this point, and it was decided she would benefit from skilled care evaluation and PT agreed that she would need several weeks of skilled PT/OT to resume her normal functioning. She is officially out of Covid quarantine today and can be transferred to skilled care. We will continue vitamin therapy, Levaquin for UTI and dexamethasone for 3 days. We will transfer to the [facility] today. Regular medications will continue. We will monitor her anemia with a BMP and a CBC in 3 days. We will follow her per our regular [facility] rounds. Objective Vital signs: Temp Pulse Resp BP Pulse Ox 97.5 F L 74 20 173/99 H 91 L 06/24/20 07:37 06/24/20 07:37 06/24/20 07:37 06/24/20 07:37 06/24/20 07:37 no acute distress Comments: Mildly pale and fatigued but otherwise is alert and oriented. - *Routine HEENT Exam Head: Present: normocephalic Eye: Present: EOMI, PERRL ENT: Present: mucous membranes moist - *Routine Neck Exam Present: supple - *Routine Respiratory Exam Present: CTA bilaterally - *Routine Cardiovascular Exam Present: RRR - *Routine Abdominal Exam Present: soft, normoactive bowel sounds. Absent: tenderness - *Routine Extremities Exam Absent: cyanosis, clubbing, edema - *Routine Skin Exam Present: warm. Absent: rash - Detailed Eye Exam Eyelids: Bilateral normal inspection Results Labs on day of discharge: Labs from last 24 hours 06/24/20 06/24/20 06/24/20 05:50 05:50 05:50 Hgb 8.1 L Hct 27.1 L Sodium 135 L Potassium 3.4 L Chloride 105 Carbon Dioxide 24 Anion Gap 9.4 BUN 18 H Creatinine 0.70 Estimated Creat Clear 52 Estimated GFR 80 Est GFR ( Amer) 97 Glucose 102 H Calcium 8.0 L Magnesium 2.4 H D Total Bilirubin 0.3 AST 49 H ALT 40 Alkaline Phosphatase 53 Total Protein 5.9 L Albumin 2.8 L Globulin 3.1 Albumin/Globulin Ratio 0.9 L Preliminary micro results at discharge 06/21/20 07:56 Blood Culture - Preliminary Blood NO GROWTH AFTER 48 HOURS 06/21/20 07:58 Blood Culture - Preliminary Blood NO GROWTH AFTER 48 HOURS 06/21/20 07:00 Urine Culture - Preliminary Urine,Catheterized Gram Negative Rods DS: Diagnosis - Discharge Diagnosis (1) Pneumonia due to COVID-19 virus Status: Res
== END 2020-06-24 11:05 | DRG 177 ==
LOC: ER 09:56 → 2ND 13:32
PROVIDERS: Admitting Provider Internal Medicine Adolescent Medicine; Emergency Provider Emergency Medicine; PCP Internal Medicine Adolescent Medicine; Visit Provider Internal Medicine Adolescent Medicine
DX: U07.1 COVID-19 (principal); J12.82 Pneumonia due to coronavirus disease 2019; D62 Acute posthemorrhagic anemia; N39.0 Urinary tract infection, site not specified; E86.0 Dehydration; I10 Essential (primary) hypertension; Z79.899 Other long term (current) drug therapy; Z88.1 Allergy status to other antibiotic agents
CPT/HCPCS: 36415; 71045; 80053; 81001; 82272; 83605; 83735; 84145; 85014; 85018; 85025; 85651; 86140; 86850; 87040; 87086; 87088; 87186; 96365; 96375; 97110; 97116; 97161; 97166; 97530; 99284; G0328; J1956; J2405; P9016

== ENCOUNTER → 2021-07-19 15:56 | Outpatient (CLI) | payer MEDICARE, OTHER, SELFPAY ==
--- NOTE | 2021-07-19 16:12 | XR_ITS ---
FINAL REPORT TECHNIQUE: Chest PA & Lateral CLINICAL HISTORY: ACUTE BRONCHOPNEUMONIA, WHEEZING COMPARISON: June 21, 2020 FINDINGS: 2 views of the chest were performed. The heart size is normal. The mediastinum is within normal limits. There are chronic changes at the lung bases. There are no pleural effusions. The previously noted bilateral airspace infiltrates are longer seen. There is no pneumothorax. The bony thorax appears intact. IMPRESSION: Previously noted airspace infiltrates are no longer seen. Reviewed, Interpreted and Dictated by Wesley Lux MD Transcribed by Samreen Ragland Authenticated by Wesley Lux MD on 07/19/2021 04:58:44 PM [facility]
[2021-07-19 17:07] LABS: Basophils # 0.1 K/mm3 (0-0.2); Basophils % 0.7 % (0.1-2.0); Eosinophils # 0.7 K/mm3 (0.0-0.4); Eosinophils % 7.1 % (0.1-12.0); Hematocrit 43.5 % (37.0-47.0); Lymphocytes # 2.5 K/mm3 (0.7-4.5); Lymphocytes % 23.8 % (10-50); Mean Corpuscular HGB Conc 32.2 g/dL (31.8-35.4); Mean Corpuscular Hemoglobin 27.1 pg (27.0-31.2); Mean Corpuscular Volume 84.2 fl (81-99); Mean Platelet Volume 8.2 fl (7.4-10.4); Monocytes # 0.5 K/mm3 (0.1-1.0); Monocytes % 5.2 % (1.7-9.3); Neutrophils # 6.5 K/mm3 (1.8-7.8); Neutrophils % 63.1 % (37.0-80.0); Platelet Count 260 K/mm3 (142-424); Red Blood Count 5.16 M/mm3 (4.20-5.40); Red Cell Distribution Width 19.5 % (11.5-17.5); White Blood Count 10.3 K/mm3 (4.8-10.8)
[2021-07-19 18:13] LABS: Alanine Aminotransferase 29 U/L (12-78); Albumin Level 4.7 g/dl (3.5-5.0); Albumin/Globulin Ratio 1.6 (1.1-1.8); Alkaline Phosphatase 58 U/L (38-126); Anion Gap 13.2 mEq/L (5-15); Aspartate Amino Transferase 42 U/L (14-36); Bilirubin,Total 0.5 mg/dl (0.2-1.3); Blood Urea Nitrogen 17 mg/dl (7-17); Calcium 9.5 mg/dl (8.4-10.2); Carbon Dioxide 28 mmol/L (22.0-30.0); Chloride 99 mmol/L (98-107); Estimated Glomerular Filt Rate 80 ml/min (>60); GFR (African American) 97 ML/MIN (>60); Globulin 2.9 g/dL (1.3-3.2); Glucose 106 mg/dl (74-100); Potassium 4.2 mmoL/L (3.5-5.1); Sodium 136 mmol/L (136-145); Total Protein,Serum 7.6 g/dl (6.3-8.2)
== END ==
PROVIDERS: PCP Internal Medicine Adolescent Medicine; Visit Provider Internal Medicine Adolescent Medicine
DX: R06.2 Wheezing (principal); J18.0 Bronchopneumonia, unspecified organism
CPT/HCPCS: 36415; 71046; 80053; 85025

== ENCOUNTER → 2021-08-03 07:47 | Outpatient (CLI) | payer MEDICARE, OTHER, SELFPAY ==
[2021-08-03 08:40] VITALS: PULSE 78; PULSE 80
== END ==
PROVIDERS: PCP Internal Medicine Adolescent Medicine; Visit Provider Internal Medicine Adolescent Medicine
DX: R06.2 Wheezing (principal)
CPT/HCPCS: 94060; 94618; 94640; 94727; 94729

== ENCOUNTER → 2022-05-09 10:23 | Outpatient (CLI) | payer MEDICARE, OTHER, SELFPAY ==
[2022-05-09 11:14] LABS: Basophils # 0.1 K/mm3 (0-0.2); Basophils % 0.6 % (0.1-2.0); Eosinophils # 0.2 K/mm3 (0.0-0.4); Eosinophils % 2.3 % (0.1-12.0); Hematocrit 24.1 % (37.0-47.0); Hemoglobin 7.4 g/dL (12.2-16.2); Lymphocytes # 1.5 K/mm3 (0.7-4.5); Lymphocytes % 17.7 % (10-50); Mean Corpuscular HGB Conc 30.6 g/dL (31.8-35.4); Mean Platelet Volume 8.3 fl (7.4-10.4); Monocytes # 0.3 K/mm3 (0.1-1.0); Monocytes % 3.8 % (1.7-9.3); Neutrophils # 6.6 K/mm3 (1.8-7.8); Neutrophils % 75.6 % (37.0-80.0); Platelet Count 427 K/mm3 (142-424); Red Blood Count 3.88 M/mm3 (4.20-5.40); Red Cell Distribution Width 18.8 % (11.5-17.5); White Blood Count 8.7 K/mm3 (4.8-10.8)
[2022-05-09 12:05] LABS: Alanine Aminotransferase 17 U/L (12-78); Albumin Level 4.5 g/dl (3.5-5.0); Albumin/Globulin Ratio 1.8 (1.1-1.8); Alkaline Phosphatase 68 U/L (38-126); Anion Gap 15.1 mEq/L (5-15); Aspartate Amino Transferase 28 U/L (14-36); Bilirubin,Total 0.4 mg/dl (0.2-1.3); Blood Urea Nitrogen 26 mg/dl (7-17); Calcium 9.6 mg/dl (8.4-10.2); Carbon Dioxide 24 mmol/L (22.0-30.0); Chloride 102 mmol/L (98-107); Estimated Glomerular Filt Rate 60 ml/min (>60); GFR (African American) 72 ML/MIN (>60); Globulin 2.5 g/dL (1.3-3.2); Glucose 132 mg/dl (74-100); Magnesium 1.5 mg/dl (1.6-2.3); Potassium 4.1 mmoL/L (3.5-5.1); Sodium 137 mmol/L (136-145)
[2022-05-09 12:15] LABS: NT Pro Brain Natriuretic Pep. 147 pg/mL (0-450)
[2022-05-09 12:21] LABS: Troponin I < 0.01 ng/ml (0.00-0.034)
[2022-05-09 12:22] LABS: Free Thyroxine Index 3.2 ug/dL (5.93-13.13); T4 (Thyroxine) 10.3 ug/dl (5.53-11.0); Triiodothryronine (T3) Uptake 31 % (23.5-40.5)
[2022-05-09 12:23] LABS: 25-OH Vitamin D, Total 53.7 ng/mL (30-100)
[2022-05-09 12:35] LABS: Thyroid Stimulating Hormone 6.85 uIU/mL (0.465-4.68)
[2022-05-09 12:55] LABS: Vitamin B12 > 1000 pg/mL (239-931)
== END ==
PROVIDERS: PCP Internal Medicine Adolescent Medicine; Visit Provider Internal Medicine Adolescent Medicine
DX: R06.09 Other forms of dyspnea (principal); R00.2 Palpitations; Z86.16 Personal history of COVID-19
CPT/HCPCS: 36415; 80053; 82306; 82607; 83735; 83880; 84436; 84443; 84479; 84484; 85025

== ENCOUNTER 2022-05-11 16:44 | Emergency (ER) | payer MEDICARE, SELFPAY ==
[2022-05-11] VITALS (15 sets, daily range): BP systolic 138–174; BP diastolic 62–85; PULSE 68–86; RESP 18; TEMP 36.4–36.8; O2SAT 98–100; BMI 26.2
--- NOTE | 2022-05-11 17:30 | XR_ITS ---
PROCEDURE INFORMATION: Exam: XR Chest Exam date and time: 05/11/2022 5:38 PM Age: 81 years old Clinical indication: Other: Weakness TECHNIQUE: Imaging protocol: Radiologic exam of the chest. Views: 2 views. COMPARISON: CR XR CHEST 2V 07/19/2021 4:14 PM FINDINGS: Lungs: Normal pulmonary expansion. Pulmonary vasculature grossly normal. No gross pulmonary infiltrates or edema pattern. Mild chronic linear scarring or subsegmental atelectasis in the left base unchanged back to 06/14/2020. Pleural spaces: No pleural effusion. No pneumothorax. Heart/Mediastinum: Heart size normal. No tracheal/mediastinal shift. Bones/joints: No acute osseous abnormalities are identified. Mild thoracic spondylosis. IMPRESSION: No acute thoracic process.
[2022-05-11 17:42] LABS: Basophils # 0.1 K/mm3 (0-0.2); Basophils % 0.4 % (0.1-2.0); Eosinophils # 0.1 K/mm3 (0.0-0.4); Eosinophils % 1.2 % (0.1-12.0); Hematocrit 21.5 % (37.0-47.0); Lymphocytes # 1.6 K/mm3 (0.7-4.5); Lymphocytes % 13.7 % (10-50); Mean Corpuscular HGB Conc 30.4 g/dL (31.8-35.4); Mean Corpuscular Volume 62.3 fl (81-99); Mean Platelet Volume 7.7 fl (7.4-10.4); Monocytes # 0.5 K/mm3 (0.1-1.0); Monocytes % 4.7 % (1.7-9.3); Neutrophils # 9.2 K/mm3 (1.8-7.8); Platelet Count 408 K/mm3 (142-424); Red Blood Count 3.45 M/mm3 (4.20-5.40); White Blood Count 11.6 K/mm3 (4.8-10.8)
[2022-05-11 17:47] LABS: Chloride 102 mmol/L (98-107); Potassium 3.6 mmoL/L (3.5-5.1); Sodium 135 mmol/L (136-145)
[2022-05-11 17:50] LABS: Alanine Aminotransferase 19 U/L (12-78); Albumin Level 4.1 g/dl (3.5-5.0); Albumin/Globulin Ratio 1.6 (1.1-1.8); Alkaline Phosphatase 56 U/L (38-126); Anion Gap 12.6 mEq/L (5-15); Aspartate Amino Transferase 28 U/L (14-36); Blood Urea Nitrogen 25 mg/dl (7-17); Calcium 9.7 mg/dl (8.4-10.2); Carbon Dioxide 24 mmol/L (22.0-30.0); Creatinine Clearance Estimated 48 mL/min (50-200); Estimated Glomerular Filt Rate 69 ml/min (>60); GFR (African American) 83 ML/MIN (>60); Globulin 2.5 g/dL (1.3-3.2); Glucose 114 mg/dl (74-100); Total Protein,Serum 6.6 g/dl (6.3-8.2)
[2022-05-11 17:52] LABS: Bilirubin,Total 0.1 mg/dl (0.2-1.3)
[2022-05-11 17:55] LABS: Hemoglobin 6.5 g/dL (12.2-16.2)
--- NOTE | 2022-05-11 17:55 | PC.NURSE ---
aware of hemoglobin of 6.5
--- NOTE | 2022-05-11 18:24 | ECG_ITS ---
APPROVED REPORT Exam: Resting ECG HR:69 bpm ECG Measurements Heart Rate 69 AXES VA 163 P 19 QRSd 89 QRS 2 QT 384 T 40 QTc 402 Conclusion SINUS RHYTHM WITH OCCASIONAL SUPRAVENTRICULAR PREMATURE COMPLEXES BORDERLINE ECG UNCONFIRMED REPORT Electronically signed by : Agustín Gentile MD 05/13/2022 16:53:44
--- NOTE | 2022-05-11 19:45 | HMH.EDGENADL ---
Discharge Plan Disposition Patient Disposition: Home, Self-Care Condition: Fair Prescriptions Prescriptions: New ferrous sulfate 325 mg (65 mg iron) tablet 325 mg PO DAILY Qty: 30 0RF No Action metoprolol tartrate 50 MG tablet 50 mg PO BID pantoprazole 20 MG tablet,delayed release (DR/EC) 20 mg PO DAILYP PRN (Reason: Acid Reflux) famotidine 20 MG tablet 20 mg PO BID 0RF ascorbic acid (vitamin C) 500 MG tablet 500 mg PO QID 0RF pantoprazole 40 MG tablet,delayed release (DR/EC) 40 mg PO HS 0RF metoprolol tartrate 50 MG tablet 50 mg PO BID 0RF ergocalciferol (vitamin D2) 50,000 UNIT capsule 50,000 unit PO WEEKLY 0RF zinc sulfate 220 MG capsule 220 mg PO DAILY 0RF levofloxacin 500 MG tablet 500 mg PO DAILY Qty: 7 0RF dexamethasone 6 MG tablet 6 mg PO BID Qty: 6 0RF aspirin 81 MG tablet,delayed release (DR/EC) 81 mg PO DAILY Qty: 30 0RF Referrals Follow up/Referrals: Agustín Gentile MD [Primary Care Provider] - See instructions Clinical Impressions Clinical Impression: Iron deficiency anemia Instructions Patient Instructions: DI for Iron Deficiency Anemia-Adult Discharge ED Provider: Abimael Escobar General Adult HPI General Chief complaint: Weakness Stated complaint: passed out weakness, Possible Anemia Time Seen by Provider: 05/11/22 17:20 Mode of Arrival: Wheelchair Source of Information: Patient and Relative Limitations: No Limitations Description of Symptoms (Recalled from ER Triage Doc. by RN): c/o weakness and passing out prior to arrival. PT states that she was walking from her living room to her kitchen when she felt dizzy, sat in the chair and the next thing she knows she is waking up on the floor and started vomiting. Pt states she thinks just slid out of the chair. Pt states she was unable to get off the floor after this episode but she only laid on the floor for a minute until her son arrived. States she has been seeing for anemia workup. History of Present Illness HPI narrative: Patient is an 81-year-old female past medical history of acute blood loss anemia, COVID who presents with concern for weakness. She says that she has been increasingly more weak. She says that this has been going on for quite a while but is gotten substantially worse over the last couple months. She says that she did actually pass out earlier today because she was so weak. She says that she was walking across her living room to her kitchen started feeling dizzy and she sat down on the chair and then subsequently passed out. She felt nauseous afterwards and did have an episode of vomiting. She says that she was unable to get herself off the floor because she felt so weak. She denies any fever or chills. Denies any shortness of breath. She says that she is currently having a work-up for anemia. She says that this happened in the past but she never really got any answers as to why it was happening. Related Data Home Medications Medication Instructions Recorded Confirmed metoprolol tartrate 50 mg tablet 50 mg PO BID Hypertension 06/21/20 06/21/20 pantoprazole 20 mg tablet,delayed 20 mg PO DAILYP PRN Acid Reflux 06/21/20 06/21/20 release Previous Rx's Medication Instructions Recorded ascorbic acid (vitamin C) 500 mg 500 mg PO QID 06/24/20 tablet aspirin 81 mg tablet,delayed 81 mg PO DAILY ##30 06/24/20 release dexamethasone 6 mg tablet 6 mg PO BID #6 tabs 06/24/20 ergocalciferol (vitamin D2) 1,250 50,000 unit PO WEEKLY 06/24/20 mcg (50,000 unit) capsule famotidine 20 mg tablet 20 mg PO BID 06/24/20 levofloxacin 500 mg tablet 500 mg PO DAILY #7 tabs 06/24/20 metoprolol tartrate 50 mg tablet 50 mg PO BID 06/24/20 pantoprazole 40 mg tablet,delayed 40 mg PO HS 06/24/20 release zinc sulfate 50 mg zinc (220 mg) 220 mg PO DAILY 06/24/20 capsule ferrous sulfate 325 mg (65 mg 325 mg PO DAILY #30 tabs 05/11/22 iron) tablet
--- NOTE | 2022-05-11 21:26 | PC.NURSE ---
pt refused to wait for post 1 hour vitala and wanted to go home
== END 2022-05-11 21:29 | disposition home or self-care (01) ==
PROVIDERS: Emergency Provider Student in an Organized Health Care Education/Training Program; PCP Internal Medicine Adolescent Medicine
DX: R11.2 Nausea with vomiting, unspecified (principal); R50.9 Fever, unspecified; R42 Dizziness and giddiness; R53.1 Weakness; K21.9 Gastro-esophageal reflux disease without esophagitis; Z86.16 Personal history of COVID-19; J43.9 Emphysema, unspecified; Z79.899 Other long term (current) drug therapy; Z88.8 Allergy status to other drugs, medicaments and biological substances
CPT/HCPCS: 36415; 71046; 80053; 85025; 86850; 93005; P9016

== ENCOUNTER 2022-05-13 15:16 | Inpatient (IN) | payer MEDICARE, OTHER, SELFPAY ==
[2022-05-13] VITALS (19 sets, daily range): BP systolic 124–156; BP diastolic 60–98; PULSE 72–88; RESP 16–18; TEMP 36.5–37.1; O2SAT 96–100; BMI 25.7; BMI 25.9
--- NOTE | 2022-05-13 16:10 | XR_ITS ---
FINAL REPORT TECHNIQUE: Single view chest CLINICAL HISTORY: cp COMPARISON: 05/11/2022 FINDINGS: A single view of the chest was obtained. The heart and mediastinum are within normal limits. The lungs are clear. There is no pneumothorax. Osseous structures are unremarkable. IMPRESSION: No acute cardiopulmonary process. Reviewed, Interpreted and Dictated by Oswaldo Potter III, MD Transcribed by Lili Solano Authenticated and . [facility]
--- NOTE | 2022-05-13 16:12 | HMH.EDGENADL ---
Discharge Plan Disposition Patient Disposition: Admitted As Inpatient Chief Complaint: Weakness Clinical Impressions Clinical Impression: UGIB (upper gastrointestinal bleed), Melena Discharge ED Provider: Juarez Tucker General Adult HPI General Chief complaint: Weakness Stated complaint: Weakness Time Seen by Provider: 05/13/22 16:00 Mode of Arrival: Wheelchair Limitations: No Limitations Description of Symptoms (Recalled from ER Triage Doc. by RN): Pt advises she had bloodwork the other day and was anemic and has been passing dark tarry stools through her bowels with increased weakness. Pt advises she was scheduled for colooscopy on Monday but is still having weakness. History of Present Illness HPI narrative: Patient is an 81-year-old female with history of previous gastric ulcer who presents to the emergency department for evaluation of dark stools and weakness. Patient has had waxing and waning weakness, worse over the last week. Patient was seen on Monday and diagnosed with iron deficiency anemia, transfused, started on iron and discharged after discussion with PCP. Patient has EGD and colonoscopy pending on Monday but states she is still having weakness and has inability to tolerate p.o. at home causing her to present here for continued evaluation. Patient had fleeting chest pain this morning that resolved with belching. No other acute complaints at this time. Related Data Home Medications Medication Instructions Recorded Confirmed metoprolol tartrate 50 mg tablet 50 mg PO BID Hypertension 06/21/20 06/21/20 pantoprazole 20 mg tablet,delayed 20 mg PO DAILYP PRN Acid Reflux 06/21/20 06/21/20 release Previous Rx's Medication Instructions Recorded ascorbic acid (vitamin C) 500 mg 500 mg PO QID 06/24/20 tablet aspirin 81 mg tablet,delayed 81 mg PO DAILY ##30 06/24/20 release dexamethasone 6 mg tablet 6 mg PO BID #6 tabs 06/24/20 ergocalciferol (vitamin D2) 1,250 50,000 unit PO WEEKLY 06/24/20 mcg (50,000 unit) capsule famotidine 20 mg tablet 20 mg PO BID 06/24/20 levofloxacin 500 mg tablet 500 mg PO DAILY #7 tabs 06/24/20 metoprolol tartrate 50 mg tablet 50 mg PO BID 06/24/20 pantoprazole 40 mg tablet,delayed 40 mg PO HS 06/24/20 release zinc sulfate 50 mg zinc (220 mg) 220 mg PO DAILY 06/24/20 capsule ferrous sulfate 325 mg (65 mg 325 mg PO DAILY #30 tabs 05/11/22 iron) tablet Allergies Allergy/AdvReac Type Severity Reaction Status Date / Time cephalexin [From Keflex] Allergy TINGLING Verified 05/13/22 16:17 [facility] Disclaimer: The information contained in this section may have been updated after the patient was seen, as this information can be updated by other users. Social History Smoking Status: Never smoker alcohol intake: never current occupational status: retired Travel in the last 8 weeks: None household members: none housing: house ROS Obtained: Yes Systems reviewed as appropriate & no additional complaints except as documented Physical Exam General General appearance: alert and in no apparent distress Head Head exam: atraumatic and normocephalic Eye Eye exam: Present PERRL and EOMI ENT ENT exam: Present mucous membranes moist Neck Neck exam: Present normal inspection Chest Chest inspection: Present normal inspection and symmetric chest wall rise Respiratory Respiratory exam: Present normal lung sounds bilaterally; Absent respiratory distress Cardiovascular Cardiovascular exam: Present regular rate and normal rhythm Abdominal Exam Abdominal exam: Present soft; Absent tenderness Extremities Exam Extremities exam: Absent normal inspection (pale) Neurological Exam Neurological exam: Present alert and oriented X3 Psychiatric Psychiatric exam: Present normal affect Skin Skin exam: Present warm and dry Medical Decision Making Augustine Inquiry Pt receiving controlled substance: No Vital Signs: 05/13/22 15:31
--- NOTE | 2022-05-13 16:16 | PC.NURSE ---
speaking with pharmacy
--- NOTE | 2022-05-13 16:21 | ECG_ITS ---
APPROVED REPORT Exam: Resting ECG HR:79 bpm ECG Measurements Heart Rate 79 AXES LA 163 P 8 QRSd 88 QRS 7 QT 361 T 50 QTc 395 Conclusion SINUS RHYTHM WITH SINUS ARRHYTHMIA NORMAL ECG UNCONFIRMED REPORT Electronically signed by : Agustín Gentile MD 05/14/2022 12:52:51
[2022-05-13 16:24] LABS: Basophils # 0.1 K/mm3 (0-0.2); Basophils % 0.4 % (0.1-2.0); Eosinophils # 0.2 K/mm3 (0.0-0.4); Eosinophils % 1.5 % (0.1-12.0); Lymphocytes # 2.2 K/mm3 (0.7-4.5); Lymphocytes % 17.7 % (10-50); Mean Corpuscular Hemoglobin 20.1 pg (27.0-31.2); Mean Corpuscular Volume 64.8 fl (81-99); Mean Platelet Volume 8.3 fl (7.4-10.4); Monocytes # 0.7 K/mm3 (0.1-1.0); Monocytes % 5.9 % (1.7-9.3); Neutrophils % 74.5 % (37.0-80.0); Platelet Count 357 K/mm3 (142-424); Red Blood Count 3.06 M/mm3 (4.20-5.40); White Blood Count 12.1 K/mm3 (4.8-10.8)
[2022-05-13 16:27] LABS: Hematocrit 19.9 % (37.0-47.0); Hemoglobin 6.2 g/dL (12.2-16.2)
--- NOTE | 2022-05-13 16:27 | PC.NURSE ---
notified ER MD of critical hemaglobin and hematocrit notified lab of type and screen order, ER MD gave verbal order for 1 unit of blood
[2022-05-13 16:28] LABS: Chloride 103 mmol/L (98-107); Potassium 3.3 mmoL/L (3.5-5.1); Sodium 134 mmol/L (136-145)
[2022-05-13 16:31] LABS: Alanine Aminotransferase 20 U/L (12-78); Albumin Level 3.7 g/dl (3.5-5.0); Albumin/Globulin Ratio 1.5 (1.1-1.8); Alkaline Phosphatase 46 U/L (38-126); Anion Gap 11.3 mEq/L (5-15); Aspartate Amino Transferase 38 U/L (14-36); Bilirubin,Total 0.2 mg/dl (0.2-1.3); Blood Urea Nitrogen 26 mg/dl (7-17); Calcium 9.2 mg/dl (8.4-10.2); Carbon Dioxide 23 mmol/L (22.0-30.0); Creatinine Clearance Estimated 46 mL/min (50-200); Estimated Glomerular Filt Rate 80 ml/min (>60); GFR (African American) 97 ML/MIN (>60); Globulin 2.4 g/dL (1.3-3.2); Glucose 111 mg/dl (74-100); Total Protein,Serum 6.1 g/dl (6.3-8.2)
--- NOTE | 2022-05-13 16:42 | PC.NURSE ---
ELSY DENNIS speaking with dr. sheppard
[2022-05-13 16:43] LABS: Troponin I < 0.01 ng/ml (0.00-0.034)
--- NOTE | 2022-05-13 16:49 | PC.NURSE ---
paged Dr Whiteside
--- NOTE | 2022-05-13 16:54 | PC.NURSE ---
speaking to Dr Whiteside
--- NOTE | 2022-05-13 17:02 | PC.NURSE ---
SPOKE WITH REGISTRATION TO GIVE BED ASSIGNMENT.
[2022-05-13 17:11] LABS: Coronavirus 19, PCR Not Detected (NotDetected); Influenza A, PCR Not Detected (NotDetected); Influenza B, PCR Not Detected (NotDetected)
--- NOTE | 2022-05-13 17:16 | PC.NURSE ---
Pt and daughter updated on POC. Blood consent obtained and pt medicated per MAR
--- NOTE | 2022-05-13 17:25 | PC.NURSE ---
Lab called and advised blood was ready for patient. Called House and spoke with Irina due to increased volume in ED, Irina will be assisting with getting the blood from lab and getting it started.
--- NOTE | 2022-05-13 17:34 | PC.NURSE ---
Dr. De Leon at bedside
--- NOTE | 2022-05-13 17:47 | PC.NURSE ---
patient arrived to floor by wheelchair from ED
--- NOTE | 2022-05-13 17:50 | EXP.SURG.CON ---
History of Present Illness *Admission Date: 05/13/22 *Reason for visit:: Anemia *History of present illness: This is an 81-year-old female seen in consultation from the emergency department for evaluation regarding anemia and melena. She presented to Emergency Department with symptomatic anemia 2 days ago. Her hemoglobin was 6.5. She received a 1 unit transfusion and subsequently felt much better . She was discharged with plans for close outpatient follow-up. An outpatient evaluation for anemia had already been implemented. Currently, she is scheduled to undergo EGD/colonoscopy by Dr. Moore on May 20. Earlier today she presented once again to the emergency department with melena and increased weakness. Hemoglobin 6.2. Forwarded from emergency department evaluation: General Chief complaint: Weakness Stated complaint: Weakness Time Seen by Provider: 05/13/22 16:00 Mode of Arrival: Wheelchair Limitations: No Limitations Description of Symptoms (Recalled from ER Triage Doc. by RN): Pt advises she had bloodwork the other day and was anemic and has been passing dark tarry stools through her bowels with increased weakness. Pt advises she was scheduled for colooscopy on Monday but is still having weakness. History of Present Illness HPI narrative: Patient is an 81-year-old female with history of previous gastric ulcer who presents to the emergency department for evaluation of dark stools and weakness.? Patient has had waxing and waning weakness, worse over the last week.? Patient was seen on Monday and diagnosed with iron deficiency anemia, transfused, started on iron and discharged after discussion with PCP.? Patient has EGD and colonoscopy pending on Monday but states she is still having weakness and has inability to tolerate p.o. at home causing her to present here for continued evaluation.? Patient had fleeting chest pain this morning that resolved with belching.? No other acute complaints at this time. PFSH [facility] Disclaimer: The information contained in this section may have been updated after the patient was seen, as this information can be updated by other users. Social History Smoking Status: Never smoker alcohol intake: never current occupational status: retired Travel in the last 8 weeks: None household members: none housing: house Meds Home Medications and Allergies Home Medications Medication Instructions Recorded Confirmed Type metoprolol tartrate 50 mg tablet 50 mg PO BID Hypertension 06/21/20 06/21/20 History pantoprazole 20 mg tablet,delayed 20 mg PO DAILYP PRN Acid Reflux 06/21/20 06/21/20 History release ascorbic acid (vitamin C) 500 mg 500 mg PO QID 06/24/20 Rx tablet aspirin 81 mg tablet,delayed 81 mg PO DAILY ##30 06/24/20 Rx release dexamethasone 6 mg tablet 6 mg PO BID #6 tabs 06/24/20 Rx ergocalciferol (vitamin D2) 1,250 50,000 unit PO WEEKLY 06/24/20 Rx mcg (50,000 unit) capsule famotidine 20 mg tablet 20 mg PO BID 06/24/20 Rx levofloxacin 500 mg tablet 500 mg PO DAILY #7 tabs 06/24/20 Rx metoprolol tartrate 50 mg tablet 50 mg PO BID 06/24/20 Rx pantoprazole 40 mg tablet,delayed 40 mg PO HS 06/24/20 Rx release zinc sulfate 50 mg zinc (220 mg) 220 mg PO DAILY 06/24/20 Rx capsule ferrous sulfate 325 mg (65 mg 325 mg PO DAILY #30 tabs 05/11/22 Rx iron) tablet New Prescriptions to Start Prescriptions: Allergies Allergy/AdvReac Type Severity Reaction Status Date / Time cephalexin [From Keflex] Allergy TINGLING Verified 05/13/22 16:17 [facility] Exam (Inpt) Vital signs and Labs for Last 24 Hours: Temp Pulse Resp BP Pulse Ox 98.7 F 72 16 147/73 H 98 05/13/22 15:31 05/13/22 17:30 05/13/22 15:51 05/13/22 17:30 05/13/22 17:30 Laboratory Results - last 24 hr 05/13/22 15:45: WBC 12.1
--- NOTE | 2022-05-13 18:16 | PC.NURSE ---
1745: ATTEMPTED TO BLIND ESCORT BLOOD FROM THE LAB. DISCREPANCY NOTED IN V#. REASON FOR DELAY IN BLOOD RETRIEVAL AND DELAYED START TIME.
--- NOTE | 2022-05-13 18:22 | PC.NURSE ---
BLOOD TRANSFUSION INCREASED TO 150ML/HR. PATIENT TOLERATING TRANSFUSION WELL.
[2022-05-13 22:06] LABS: Troponin I < 0.01 ng/ml (0.00-0.034)
[2022-05-14 00:18] LABS: Troponin I < 0.01 ng/ml (0.00-0.034)
[2022-05-14 00:20] LABS: Hematocrit 22.5 % (37.0-47.0); Hemoglobin 7.5 g/dL (12.2-16.2)
--- NOTE | 2022-05-14 03:30 | PC.NURSE ---
BLOOD TRANSFUSION WAS COMPLETED AT 2150. NO S/S OF ADVERSE REACTIONS NOTED.
[2022-05-14 04:00] VITALS: BP 123/66; PULSE 73; RESP 18; TEMP 36.6; O2SAT 96; BMI 26.0
[2022-05-14 07:58] VITALS: BP 129/64; PULSE 80; RESP 17; TEMP 36.4; O2SAT 96
[2022-05-14 08:15] LABS: Basophils % 0.5 % (0.1-2.0); Eosinophils # 0.4 K/mm3 (0.0-0.4); Eosinophils % 4.5 % (0.1-12.0); Hemoglobin 7.3 g/dL (12.2-16.2); Lymphocytes % 23.6 % (10-50); Mean Corpuscular HGB Conc 32.9 g/dL (31.8-35.4); Mean Corpuscular Hemoglobin 22.2 pg (27.0-31.2); Mean Corpuscular Volume 67.5 fl (81-99); Mean Platelet Volume 8.1 fl (7.4-10.4); Monocytes # 0.5 K/mm3 (0.1-1.0); Monocytes % 5.5 % (1.7-9.3); Neutrophils # 5.5 K/mm3 (1.8-7.8); Neutrophils % 65.9 % (37.0-80.0); Platelet Count 273 K/mm3 (142-424); Red Blood Count 3.27 M/mm3 (4.20-5.40); Red Cell Distribution Width 23.9 % (11.5-17.5); White Blood Count 8.3 K/mm3 (4.8-10.8)
[2022-05-14 08:20] LABS: Chloride 108 mmol/L (98-107)
[2022-05-14 08:21] LABS: Potassium 3.6 mmoL/L (3.5-5.1); Sodium 137 mmol/L (136-145)
[2022-05-14 08:24] LABS: Anion Gap 9.6 mEq/L (5-15); Blood Urea Nitrogen 16 mg/dl (7-17); Calcium 8.1 mg/dl (8.4-10.2); Carbon Dioxide 23 mmol/L (22.0-30.0); Creatinine Clearance Estimated 48 mL/min (50-200); Estimated Glomerular Filt Rate 60 ml/min (>60); GFR (African American) 72 ML/MIN (>60); Glucose 111 mg/dl (74-100)
--- NOTE | 2022-05-14 08:54 | EXP.HP ---
History of Present Illness *Admission Date: 05/13/22 *Reason for visit:: Weakness *History of present illness: This is an 81-year-old female seen in consultation from the emergency department for evaluation regarding anemia and melena. She presented to Emergency Department with symptomatic anemia 2 days ago. Her hemoglobin was 6.5. She received a 1 unit transfusion and subsequently felt much better . She was discharged with plans for close outpatient follow-up. An outpatient evaluation for anemia had already been implemented. Currently, she is scheduled to undergo EGD/colonoscopy by Dr. Moore on May 20. Earlier today she presented once again to the emergency department with melena and increased weakness. Hemoglobin 6.2. Forwarded from emergency department evaluation: General Chief complaint: Weakness Stated complaint: Weakness Time Seen by Provider: 05/13/22 16:00 Mode of Arrival: Wheelchair Limitations: No Limitations Description of Symptoms (Recalled from ER Triage Doc. by RN): Pt advises she had bloodwork the other day and was anemic and has been passing dark tarry stools through her bowels with increased weakness. Pt advises she was scheduled for colooscopy on Monday but is still having weakness. History of Present Illness HPI narrative: Patient is an 81-year-old female with history of previous gastric ulcer who presents to the emergency department for evaluation of dark stools and weakness.? Patient has had waxing and waning weakness, worse over the last week.? Patient was seen on Monday and diagnosed with iron deficiency anemia, transfused, started on iron and discharged after discussion with PCP.? Patient has EGD and colonoscopy pending on Monday but states she is still having weakness and has inability to tolerate p.o. at home causing her to present here for continued evaluation.? Patient had fleeting chest pain this morning that resolved with belching.? No other acute complaints at this time. Above notes per surgery consult and ER provider. Patient has a history of previous upper GI bleed. Had endoscopy in 2013 that showed ulcer disease, she has been on proton pump inhibitor since that time but is also been on aspirin for primary cardiovascular disease prevention-has no history of ME or stroke or STEMI. Noticed about a week ago that she was having black stools. Also has had some pain in her right middle flank area that is worse with eating. She thought she had a gallbladder problem at first. [facility] Disclaimer: The information contained in this section may have been updated after the patient was seen, as this information can be updated by other users. Medical History Asthma Cataract Emphysema/COPD History of anemia Family History (Updated 05/13/22 @ 18:41 by Josette Frausto RN) Family history of cancer Social History (Updated 05/13/22 @ 18:42 by Josette Frausto RN) Smoking Status: Never smoker alcohol intake: never current occupational status: retired Travel in the last 8 weeks: None household members: none housing: house Meds Home Medications and Allergies Home Medications Medication Instructions Recorded Confirmed Type metoprolol tartrate 50 mg tablet 25 mg PO BID Hypertension 06/21/20 05/13/22 History pantoprazole 20 mg tablet,delayed 40 mg PO DAILYP PRN Acid Reflux 06/21/20 05/13/22 History release ascorbic acid (vitamin C) 500 mg 500 mg PO QID 06/24/20 05/13/22 Rx tablet aspirin 81 mg tablet,delayed 81 mg PO DAILY ##30 06/24/20 05/13/22 Rx release famotidine 20 mg tablet 20 mg PO BID 06/24/20 05/13/22 Rx pantoprazole 40 mg tablet,delayed 40 mg PO HS 06/24/20 05/13/22 Rx release zinc sulfate 50 mg zinc (220 mg) 220 mg PO DAILY 06/24/20 05/13/22 Rx capsule ferrous sulfate 325 mg (65 mg 325
[2022-05-14 15:21] VITALS: BP 147/72; PULSE 69; RESP 17; TEMP 36.7; O2SAT 98
--- NOTE | 2022-05-14 16:00 | EXP.SURG.PN ---
Subjective Patient reports: no new complaints Exam Data for Last 24 hours Vital signs and Labs for Last 24 Hours: Temp Pulse Resp BP Pulse Ox 98.0 F 69 17 147/72 H 98 05/14/22 15:21 05/14/22 15:21 05/14/22 15:21 05/14/22 15:21 05/14/22 15:21 Laboratory Results - last 24 hr 05/13/22 15:45: WBC 12.1 H, RBC 3.06 L, Hgb 6.2 L*, Hct 19.9 L*, MCV 64.8 L, MCH 20.1 L, MCHC 31.0 L, RDW 22.0 H, Plt Count 357, MPV 8.3, Neut % (Auto) 74.5, Lymph % (Auto) 17.7, [place] % (Auto) 5.9, Eos % (Auto) 1.5, Baso % (Auto) 0.4, Neut # (Auto) 9.0 H, Lymph # (Auto) 2.2, [place] # (Auto) 0.7, Eos # (Auto) 0.2, Baso # (Auto) 0.1 05/13/22 15:45: Sodium 134 L, Potassium 3.3 L, Chloride 103, Carbon Dioxide 23, Anion Gap 11.3, BUN 26 H, Creatinine 0.70, Estimated Creat Clear 46, Estimated GFR 80, Est GFR ( Amer) 97, Glucose 111 H, Calcium 9.2, Total Bilirubin 0.2, AST 38 H D, ALT 20, Alkaline Phosphatase 46, Troponin I < 0.01, Total Protein 6.1 L, Albumin 3.7, Globulin 2.4, Albumin/Globulin Ratio 1.5 05/13/22 15:45: SARS-CoV-2 (PCR) Not detected, Influenza A Untype (PCR) Not detected, Influenza Type B (PCR) Not detected 05/13/22 20:02: Troponin I < 0.01 05/13/22 23:00: Troponin I < 0.01 05/13/22 23:00: Hgb 7.5 L D, Hct 22.5 L 05/14/22 07:49: WBC 8.3 D, RBC 3.27 L, Hgb 7.3 L, Hct 22.0 L, MCV 67.5 L, MCH 22.2 L, MCHC 32.9, RDW 23.9 H, Plt Count 273, MPV 8.1, Neut % (Auto) 65.9, Lymph % (Auto) 23.6, [place] % (Auto) 5.5, Eos % (Auto) 4.5, Baso % (Auto) 0.5, Neut # (Auto) 5.5, Lymph # (Auto) 2.0, [place] # (Auto) 0.5, Eos # (Auto) 0.4, Baso # (Auto) 0.0 05/14/22 07:49: Sodium 137, Potassium 3.6, Chloride 108 H, Carbon Dioxide 23, Anion Gap 9.6, BUN 16 D, Creatinine 0.90 D, Estimated Creat Clear 48, Estimated GFR 60, Est GFR ( Amer) 72 D, Glucose 111 H, Calcium 8.1 L I & O for Last 24 hours: Intake & Output 05/12/22 05/13/22 05/14/22 05/15/22 11:59 11:59 11:59 11:59 Intake Total 911 / 911 360 / 360 Output Total 950 / 950 0 / 0 Balance -39 / -39 360 / 360 Weight 156 lb 4.924 oz Constitutional Constitutional: no acute distress *Routine Respiratory Exam Respiratory: Absent respiratory distress *Routine Cardiovascular Exam Cardiovascular: Absent tachycardia *Routine Abdominal Exam Abdominal: Present soft Progress Note: A&P Assessment and plan (1) UGIB (upper gastrointestinal bleed): Status: Acute Assessment and plan: Stable status posttransfusion of 1 unit packed red blood cells Continue proton pump inhibition Esophagogastroduodenoscopy planned for tomorrow morning I have discussed the risks and benefits including, but not limited to: Bleeding Infection Damage to surrounding tissue Inherent risks of sedation The patient agrees to proceed. (2) Iron deficiency anemia: Status: Acute (3) Melena: Status: Acute
[2022-05-14 19:48] VITALS: BP 124/57; PULSE 77; RESP 18; TEMP 36.4; O2SAT 97
[2022-05-15] VITALS (18 sets, daily range): BP systolic 114–160; BP diastolic 47–80; PULSE 68–93; RESP 16–22; TEMP 36.4–36.9; O2SAT 91–100; BMI 26.4
--- NOTE | 2022-05-15 07:14 | EXP.ANES.CKL ---
[facility] Disclaimer: The information contained in this section may have been updated after the patient was seen, as this information can be updated by other users. Medical History Asthma Cataract Emphysema/COPD History of anemia Family History (Updated 05/13/22 @ 18:41 by Josette Frausto RN) Other Family history of cancer Social History (Updated 05/13/22 @ 18:42 by Josette Frausto RN) Smoking Status: Never smoker alcohol intake: never substance use type: denies use current occupational status: retired Travel in the last 8 weeks: None household members: none housing: house [facility] Anesthesia Checklist Patient Identification Patient Identification: Arm Band and Verbal (Name & ) Structural Data Admitted From: Inpatient Planned Operative Procedure/s: EGD Consent for Planned Operative Procedure(s) Verified: Yes NPO Status Verified Time NPO: 00:00 Airway Assessment C-Spine Mobility Assessed: Yes TMJ Mobility Assessed: Yes Dentition: Edentulous Neurological Assessment Level of Consciousness: Awake Hx Seizures: No Numbness or tingling in extremities: No Anesthesia Plan Anesthesia Risk discussed: Yes Anesthesia Plan: Verified ASA Class: III Anesthesia Type: MAC
--- NOTE | 2022-05-15 07:23 | EXP.SURG.PN ---
Subjective Patient reports: no new complaints Exam Data for Last 24 hours Vital signs and Labs for Last 24 Hours: Temp Pulse Resp BP Pulse Ox 97.5 F L 79 16 125/60 98 05/15/22 04:00 05/15/22 04:00 05/15/22 04:00 05/15/22 04:00 05/15/22 04:00 Laboratory Results - last 24 hr 05/14/22 07:49: WBC 8.3 D, RBC 3.27 L, Hgb 7.3 L, Hct 22.0 L, MCV 67.5 L, MCH 22.2 L, MCHC 32.9, RDW 23.9 H, Plt Count 273, MPV 8.1, Neut % (Auto) 65.9, Lymph % (Auto) 23.6, [place] % (Auto) 5.5, Eos % (Auto) 4.5, Baso % (Auto) 0.5, Neut # (Auto) 5.5, Lymph # (Auto) 2.0, [place] # (Auto) 0.5, Eos # (Auto) 0.4, Baso # (Auto) 0.0 05/14/22 07:49: Sodium 137, Potassium 3.6, Chloride 108 H, Carbon Dioxide 23, Anion Gap 9.6, BUN 16 D, Creatinine 0.90 D, Estimated Creat Clear 48, Estimated GFR 60, Est GFR ( Amer) 72 D, Glucose 111 H, Calcium 8.1 L I & O for Last 24 hours: Intake & Output 05/12/22 05/13/22 05/14/22 05/15/22 11:59 11:59 11:59 11:59 Intake Total 911 / 911 940 / 940 Output Total 950 / 950 0 / 0 Balance -39 / -39 940 / 940 Weight 156 lb 4.924 oz 158 lb 4 oz Constitutional Constitutional: no acute distress *Routine Respiratory Exam Respiratory: Absent respiratory distress *Routine Cardiovascular Exam Cardiovascular: Absent tachycardia Progress Note: A&P Assessment and plan (1) UGIB (upper gastrointestinal bleed): Status: Acute Assessment and plan: Esophagogastroduodenoscopy this morning (2) Iron deficiency anemia: Status: Acute (3) Melena: Status: Acute
--- NOTE | 2022-05-15 07:56 | HMH.SCOPE ---
Procedure: Date: 05/15/22 Patient Date of :: 1940 Procedure Performed:: Esophagogastroduodenoscopy with biopsy and epinephrine injection Indications:: Upper gastrointestinal hemorrhage Performing Provider:: Trae De Leon MD Referring Provider:: Dr. Gentile Sedation:: Monitored anesthesia care Procedure:: After informed consent was obtained the patient was taken to the endoscopy suite. Sedation ensued after the patient was transferred to the left lateral decubitus position. Pulse, blood pressure, and oxygen saturation were monitored throughout the procedure. The endoscope was advanced beyond the duodenal bulb. Retroflexion within the gastric lumen was accomplished. The gastroscope was carefully removed and the patient was transferred to recovery in stable condition. Please see findings and specimens below for detail. 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 with multiple ulcerations and evidence of recent hemorrhage Biopsies of mass lesion obtained Epinephrine injection of mass lesion completed 30 mm Captivator snare (largest available snare at this facility) not able to be secured in position secondary to size of lesion No active bleeding Scattered fundic gland polyps in proximal and mid gastric body Specimens:: Multiple biopsies of mid gastric body ulcerated mass lesion Recommendations:: Follow-up pathology Consider short-term repeat EGD at facility equipped for endoscopic resection of large gastric lesions (unless malignancy confirmed) If malignancy confirmed...evaluation by a GI Oncologic Surgeon warranted Complications:: No immediate Estimated blood obtained (mL): 1
--- NOTE | 2022-05-15 08:47 | ECG_ITS ---
APPROVED REPORT Exam: Resting ECG HR:77 bpm ECG Measurements Heart Rate 77 AXES LA 171 P 64 QRSd 96 QRS 15 QT 388 T 69 QTc 419 Conclusion SINUS RHYTHM WITH SINUS ARRHYTHMIA NORMAL ECG UNCONFIRMED REPORT Electronically signed by : Agustín Gentile MD 05/16/2022 07:18:04
--- NOTE | 2022-05-15 09:08 | SUR.PHASEII ---
803- pt awake and arousing. Oral airway removed. 0815- pt complaining of nausea. Wet rag placed on forehead. [id number] order received for 4 mg zofran iv once for nausea.
--- NOTE | 2022-05-15 09:21 | EXP.ACUTE.PN ---
Subjective *Date: 05/15/22 *Time: 09:21 Interval history: EGD was accomplished this morning without complications. Patient did have a little bit of chest pain afterwards, relieved with GI cocktail. Medical Exam Vital signs and Labs for Last 24 Hours: Vital Signs Temp Pulse Resp BP Pulse Ox 05/15/22 08:28 86 22 144/72 H 97 05/15/22 08:23 82 22 154/71 H 97 05/15/22 08:13 81 22 146/75 H 91 L 05/15/22 08:58 86 22 144/72 H 97 05/15/22 08:03 93 H 20 131/77 98 05/15/22 07:58 97.8 F 93 H 22 114/47 L 97 05/15/22 04:00 97.5 F L 79 16 125/60 98 05/14/22 19:48 97.5 F L 77 18 124/57 L 97 05/14/22 15:21 98.0 F 69 17 147/72 H 98 Intake and Output 05/14/22 05/15/22 05/15/22 19:59 03:59 11:59 Intake Total 820 / 940 120 / 940 Output Total 0 / 0 0 / 0 Balance 820 / 940 120 / 940 0 / 940 Intake: Intake, Oral Amount 820 / 940 120 / 940 Output: Output, Urine Amount 0 / 0 0 / 0 Other: Number of Unmeasured Voids 1 1 Weight 158 lb 4 oz Patient Weight 05/15/22 11:59 Weight 158 lb 4 oz I & O for Labs for Last 24 Hours: Intake & Output 05/12/22 05/13/22 05/14/22 05/15/22 11:59 11:59 11:59 11:59 Intake Total 911 / 911 940 / 940 Output Total 950 / 950 0 / 0 Balance -39 / -39 940 / 940 Weight 156 lb 4.924 oz 158 lb 4 oz Comment:: Alert, oriented x3. Lungs clear, heart rate regular. No edema, abdomen soft Assessment and Plan *Assessment and plan (1) Iron deficiency anemia: Status: Acute Category: Medical Code(s): D50.9 - Iron deficiency anemia, unspecified (2) UGIB (upper gastrointestinal bleed): Status: Acute Category: Medical Code(s): K92.2 - Gastrointestinal hemorrhage, unspecified (3) Melena: Status: Acute Category: Medical Code(s): K92.1 - Melena Plan Post EGD, discussed case with surgeon. Appreciate input. Watch labs tonight, watch labs tomorrow probable probable discharge if remains stable. Chest pain relieved with GI cocktail. Will need GI evaluation afterwards for polyp removal.
--- NOTE | 2022-05-15 18:33 | PC.NURSE ---
Pt is A/Ox4. She has tolerated diet well. She has been ambulating to the bathroom with assist x1. She complained of a HUGGINS today and was given tylenol and it was resolved. Family is at bedside. She has complained of diarrhea and have notified kanson. No needs or complaints at this time.
[2022-05-15 18:43] LABS: Anion Gap 13.3 mEq/L (5-15); Blood Urea Nitrogen 8 mg/dl (7-17); Carbon Dioxide 23 mmol/L (22.0-30.0); Chloride 106 mmol/L (98-107); Creatinine Clearance Estimated 48 mL/min (50-200); Estimated Glomerular Filt Rate 60 ml/min (>60); GFR (African American) 72 ML/MIN (>60); Glucose 152 mg/dl (74-100); Potassium 3.3 mmoL/L (3.5-5.1); Sodium 139 mmol/L (136-145)
[2022-05-16] VITALS (23 sets, daily range): BP systolic 120–154; BP diastolic 56–82; PULSE 65–82; RESP 16–20; TEMP 36.4–37.1; O2SAT 94–100; BMI 26.4
--- NOTE | 2022-05-16 05:21 | PC.NURSE ---
pt has rested well t/o the night. A&OX4. no complaints of chest pain this shift. refused SCDs. family at bedside. call light in reach
[2022-05-16 06:57] LABS: Chloride 108 mmol/L (98-107); Potassium 3.1 mmoL/L (3.5-5.1); Sodium 139 mmol/L (136-145)
[2022-05-16 07:00] LABS: Anion Gap 7.1 mEq/L (5-15); Blood Urea Nitrogen 9 mg/dl (7-17); Carbon Dioxide 27 mmol/L (22.0-30.0); Creatinine Clearance Estimated 49 mL/min (50-200); Estimated Glomerular Filt Rate 60 ml/min (>60); GFR (African American) 72 ML/MIN (>60)
[2022-05-16 07:01] LABS: Calcium 7.7 mg/dl (8.4-10.2); Glucose 88 mg/dl (74-100)
--- NOTE | 2022-05-16 07:09 | EXP.SURG.PN ---
Subjective Patient reports: no new complaints Exam Data for Last 24 hours Vital signs and Labs for Last 24 Hours: Temp Pulse Resp BP Pulse Ox 97.5 F L 82 20 139/61 94 L 05/16/22 04:00 05/16/22 04:00 05/16/22 04:00 05/16/22 04:00 05/16/22 04:00 Laboratory Results - last 24 hr 05/15/22 18:05: Sodium 139, Potassium 3.3 L, Chloride 106, Carbon Dioxide 23, Anion Gap 13.3, BUN 8 D, Creatinine 0.90, Estimated Creat Clear 48, Estimated GFR 60, Est GFR ( Amer) 72, Glucose 152 H, Calcium 8.0 L 05/16/22 06:10: Sodium 139, Potassium 3.1 L, Chloride 108 H, Carbon Dioxide 27, Anion Gap 7.1, BUN 9, Creatinine 0.90, Estimated Creat Clear 49, Estimated GFR 60, Est GFR ( Amer) 72, Glucose 88 D, Calcium 7.7 L I & O for Last 24 hours: Intake & Output 05/13/22 05/14/22 05/15/22 05/16/22 11:59 11:59 11:59 11:59 Intake Total 911 / 911 940 / 940 1080 / 1080 Output Total 950 / 950 0 / 0 0 / 0 Balance -39 / -39 940 / 940 1080 / 1080 Weight 156 lb 4.924 oz 158 lb 3.965 oz 158 lb 15.253 oz Constitutional Constitutional: no acute distress *Routine Respiratory Exam Respiratory: Absent respiratory distress *Routine Cardiovascular Exam Cardiovascular: Absent tachycardia Progress Note: A&P Assessment and plan (1) Gastric ulcer: Problem details: Multiple ulcerations at focal site and mid gastric body polypoid lesion Status: Acute Assessment and plan: Continue PPI Follow-up pathology Short-term reevaluation of facility capable of possible endoscopic resection of large gastric lesions (pending path) (2) Iron deficiency anemia: Status: Acute (3) UGIB (upper gastrointestinal bleed): Status: Acute (4) Melena: Status: Acute
[2022-05-16 07:12] LABS: Basophils % 0.4 % (0.1-2.0); Eosinophils # 0.2 K/mm3 (0.0-0.4); Eosinophils % 4.8 % (0.1-12.0); Hematocrit 21.1 % (37.0-47.0); Lymphocytes # 1.3 K/mm3 (0.7-4.5); Lymphocytes % 25.7 % (10-50); Mean Corpuscular HGB Conc 32.4 g/dL (31.8-35.4); Mean Corpuscular Hemoglobin 21.7 pg (27.0-31.2); Mean Corpuscular Volume 67.2 fl (81-99); Mean Platelet Volume 7.7 fl (7.4-10.4); Monocytes # 0.3 K/mm3 (0.1-1.0); Monocytes % 5.6 % (1.7-9.3); Neutrophils # 3.2 K/mm3 (1.8-7.8); Neutrophils % 63.5 % (37.0-80.0); Platelet Count 249 K/mm3 (142-424); Red Blood Count 3.14 M/mm3 (4.20-5.40); Red Cell Distribution Width 23.1 % (11.5-17.5); White Blood Count 5.1 K/mm3 (4.8-10.8)
[2022-05-16 07:17] LABS: Hemoglobin 6.8 g/dL (12.2-16.2)
--- NOTE | 2022-05-16 07:37 | EXP.ACUTE.PN ---
Subjective *Date: 05/16/22 *Time: 07:37 Interval history: Patient feels much better, and was actually packing her bags to be discharged today when I made rounds. Unfortunately, her hemoglobin was below 7 g today. She does report that she continues to have dark stools and had some diarrhea yesterday but they are clearing. Medical Exam Vital signs and Labs for Last 24 Hours: Vital Signs Temp Pulse Resp BP Pulse Ox 05/16/22 04:00 97.5 F L 82 20 139/61 94 L 05/15/22 20:00 97.8 F 69 16 131/55 L 97 05/15/22 15:20 98.4 F 73 18 118/53 L 98 05/15/22 12:30 98.2 F 83 18 133/77 99 05/15/22 11:30 97.8 F 78 18 119/64 99 05/15/22 10:30 98.1 F 82 18 142/72 H 99 05/15/22 10:00 97.9 F 86 18 140/66 100 05/15/22 09:30 98.2 F 83 18 131/73 99 05/15/22 09:15 98.1 F 83 18 137/73 99 05/15/22 09:00 97.8 F 68 18 145/67 H 100 05/15/22 08:45 98.0 F 74 20 160/80 H 100 05/15/22 08:30 97.9 F 81 18 160/75 H 99 05/15/22 08:28 86 22 144/72 H 97 05/15/22 08:23 82 22 154/71 H 97 05/15/22 08:13 81 22 146/75 H 91 L 05/15/22 08:58 86 22 144/72 H 97 05/15/22 08:03 93 H 20 131/77 98 05/15/22 07:58 97.8 F 93 H 22 114/47 L 97 Intake and Output 05/15/22 05/16/22 05/16/22 19:59 03:59 11:59 Intake Total 1020 / 1080 60 / 1080 Output Total 0 / 0 0 / 0 Balance 1020 / 1080 60 / 1080 0 / 1080 Intake: Intake, Oral Amount 1020 / 1080 60 / 1080 Output: Output, Urine Amount 0 / 0 0 / 0 Other: Number of Unmeasured Voids 1 1 Weight 158 lb 15.253 oz Patient Weight 05/16/22 11:59 Weight 158 lb 15.253 oz Laboratory Results - last 24 hr 05/15/22 18:05: Sodium 139, Potassium 3.3 L, Chloride 106, Carbon Dioxide 23, Anion Gap 13.3, BUN 8 D, Creatinine 0.90, Estimated Creat Clear 48, Estimated GFR 60, Est GFR ( Amer) 72, Glucose 152 H, Calcium 8.0 L 05/16/22 06:10: WBC 5.1 D, RBC 3.14 L, Hgb 6.8 L*, Hct 21.1 L, MCV 67.2 L, MCH 21.7 L, MCHC 32.4, RDW 23.1 H, Plt Count 249, MPV 7.7, Neut % (Auto) 63.5, Lymph % (Auto) 25.7, [place] % (Auto) 5.6, Eos % (Auto) 4.8, Baso % (Auto) 0.4, Neut # (Auto) 3.2, Lymph # (Auto) 1.3, [place] # (Auto) 0.3, Eos # (Auto) 0.2, Baso # (Auto) 0.0 05/16/22 06:10: Sodium 139, Potassium 3.1 L, Chloride 108 H, Carbon Dioxide 27, Anion Gap 7.1, BUN 9, Creatinine 0.90, Estimated Creat Clear 49, Estimated GFR 60, Est GFR ( Amer) 72, Glucose 88 D, Calcium 7.7 L I & O for Labs for Last 24 Hours: Intake & Output 05/13/22 05/14/22 05/15/22 05/16/22 11:59 11:59 11:59 11:59 Intake Total 911 / 911 940 / 940 1080 / 1080 Output Total 950 / 950 0 / 0 0 / 0 Balance -39 / -39 940 / 940 1080 / 1080 Weight 156 lb 4.924 oz 158 lb 3.965 oz 158 lb 15.253 oz Comment:: Alert, oriented x3. Lungs clear, heart rate regular. No edema, abdomen soft Assessment and Plan *Assessment and plan (1) Iron deficiency anemia: Status: Acute Category: Medical Code(s): D50.9 - Iron deficiency anemia, unspecified (2) UGIB (upper gastrointestinal bleed): Status: Acute Category: Medical Code(s): K92.2 - Gastrointestinal hemorrhage, unspecified (3) Melena: Status: Acute Category: Medical Code(s): K92.1 - Melena Plan Post EGD, discussed case with surgeon. Appreciate input. Watch labs tonight, watch labs tomorrow probable probable discharge if remains stable. Chest pain relieved with GI cocktail. Will need GI evaluation afterwards for polyp removal. Plan addendum for 05/16/2022-doing well. I think her clearing stool are the residual from what appears to be a fairly significant GI bleed and its acting as a cathartic. However, her hemoglobin below 7 is concerning and we will give her 2 units of packed cells. She is also hypokalemic. We will replace this and if her labs look good after the transfusion I may discharge her home in the care of her daughter who lives in to
[2022-05-16 16:53] LABS: Hematocrit 30.4 % (37.0-47.0)
[2022-05-16 17:02] LABS: Chloride 106 mmol/L (98-107); Potassium 3.9 mmoL/L (3.5-5.1); Sodium 138 mmol/L (136-145)
[2022-05-16 17:05] LABS: Anion Gap 9.9 mEq/L (5-15); Blood Urea Nitrogen 10 mg/dl (7-17); Carbon Dioxide 26 mmol/L (22.0-30.0); Creatinine Clearance Estimated 49 mL/min (50-200); Estimated Glomerular Filt Rate 60 ml/min (>60); GFR (African American) 72 ML/MIN (>60)
[2022-05-16 17:06] LABS: Calcium 8.5 mg/dl (8.4-10.2); Glucose 86 mg/dl (74-100); Hemoglobin 10.3 g/dL (12.2-16.2)
--- NOTE | 2022-05-16 17:27 | EXP.DC.SUM ---
General Admission date:: 05/13/22 Discharge date: 05/16/22 HPI HPI HPI: This is an 81-year-old female seen in consultation from the emergency department for evaluation regarding anemia and melena. She presented to Emergency Department with symptomatic anemia 2 days ago. Her hemoglobin was 6.5. She received a 1 unit transfusion and subsequently felt much better . She was discharged with plans for close outpatient follow-up. An outpatient evaluation for anemia had already been implemented. Currently, she is scheduled to undergo EGD/colonoscopy by Dr. Moore on May 20. Earlier today she presented once again to the emergency department with melena and increased weakness. Hemoglobin 6.2. Forwarded from emergency department evaluation: General Chief complaint: Weakness Stated complaint: Weakness Time Seen by Provider: 05/13/22 16:00 Mode of Arrival: Wheelchair Limitations: No Limitations Description of Symptoms (Recalled from ER Triage Doc. by RN): Pt advises she had bloodwork the other day and was anemic and has been passing dark tarry stools through her bowels with increased weakness. Pt advises she was scheduled for colooscopy on Monday but is still having weakness. History of Present Illness HPI narrative: Patient is an 81-year-old female with history of previous gastric ulcer who presents to the emergency department for evaluation of dark stools and weakness.? Patient has had waxing and waning weakness, worse over the last week.? Patient was seen on Monday and diagnosed with iron deficiency anemia, transfused, started on iron and discharged after discussion with PCP.? Patient has EGD and colonoscopy pending on Monday but states she is still having weakness and has inability to tolerate p.o. at home causing her to present here for continued evaluation.? Patient had fleeting chest pain this morning that resolved with belching.? No other acute complaints at this time. Above notes per surgery consult and ER provider. Patient has a history of previous upper GI bleed. Had endoscopy in 2013 that showed ulcer disease, she has been on proton pump inhibitor since that time but is also been on aspirin for primary cardiovascular disease prevention-has no history of AK or stroke or STEMI. Noticed about a week ago that she was having black stools. Also has had some pain in her right middle flank area that is worse with eating. She thought she had a gallbladder problem at first. Hospital Course Hospital Course Hospital Course: Patient was admitted, transfused with 2 units packed cells, increased her hemoglobin up to above 7. She was subjected to EGD on Monday, 05/15, had significant duodenal/stomach ulcerations around the polyp structure. This was unable to be snared by surgery secondary to the size of the lesion, please see surgery notes for details. Patient did well, the next day however dropped her hemoglobin to below 7 g, she was given 2 units of packed cells today and increased her hemoglobin to 10. Hypokalemia resolved. She will be discharged home with a CBC tomorrow morning and then again on Monday morning with follow-up in our office at that point. Recommended she discontinue her aspirin and NSAIDs. Tylenol for pain, twice daily proton pump inhibitor. Exam Data for Last 24 hours Vital signs and Labs for Last 24 Hours: Temp Pulse Resp BP Pulse Ox 98.1 F 74 18 152/74 H 99 05/16/22 16:30 05/16/22 16:30 05/16/22 16:30 05/16/22 16:30 05/16/22 16:30 Laboratory Results - last 24 hr 05/15/22 18:05: Sodium 139, Potassium 3.3 L, Chloride 106, Carbon Dioxide 23, Anion Gap 13.3, BUN 8 D, Creatinine 0.90, Estimated Creat Clear 48, Estimated GFR 60, Est GFR ( Amer) 72, Glucose 152 H, Calcium 8.0 L 05/16/22 06:10: WBC 5.1 D, RBC 3.14 L, Hgb 6.8 L*, Hct 21.1 L, MCV 67.2 L, MCH 21.7 L, MCHC 32
--- NOTE | 2022-05-17 15:08 | SW/DCPLANNER ---
Follow up phone call was made with this patient on 05/17/22: patient has all medications and is aware of follow up appointment with PCP.
== END 2022-05-16 18:20 | disposition home or self-care (01) | DRG 378 ==
LOC: ER 15:44 → 2ND 17:28
PROVIDERS: Surgery; Admitting Provider Family Medicine; Emergency Provider Emergency Medicine; PCP Internal Medicine Adolescent Medicine; Visit Provider Internal Medicine Adolescent Medicine
PROC: 0DJ08ZZ Inspection of Upper Intestinal Tract, Via Natural or Artificial Opening Endoscopic (ICD-10-PCS; CPT 43235; principal; 2022-05-15 07:30)
DX: K25.4 Chronic or unspecified gastric ulcer with hemorrhage (principal); D62 Acute posthemorrhagic anemia; K92.1 Melena; J43.9 Emphysema, unspecified; K31.9 Disease of stomach and duodenum, unspecified; E87.6 Hypokalemia
CPT/HCPCS: 43235; 43255; 36415; 71045; 71046; 80048; 80053; 84484; 85014; 85018; 85025; 86850; 88305; 93005; 99285; C9803; J0696; J2405; P9016; U0003; U0005

== ENCOUNTER → 2022-05-17 10:55 | Outpatient (CLI) | payer MEDICARE, SELFPAY ==
[2022-05-17 11:37] LABS: Basophils % 0.6 % (0.1-2.0); Eosinophils # 0.3 K/mm3 (0.0-0.4); Eosinophils % 3.9 % (0.1-12.0); Hematocrit 31.1 % (37.0-47.0); Hemoglobin 10.2 g/dL (12.2-16.2); Lymphocytes # 1.1 K/mm3 (0.7-4.5); Lymphocytes % 16.1 % (10-50); Mean Corpuscular HGB Conc 32.7 g/dL (31.8-35.4); Mean Corpuscular Hemoglobin 23.9 pg (27.0-31.2); Mean Corpuscular Volume 73.2 fl (81-99); Mean Platelet Volume 9.2 fl (7.4-10.4); Monocytes # 0.4 K/mm3 (0.1-1.0); Monocytes % 5.8 % (1.7-9.3); Neutrophils # 4.8 K/mm3 (1.8-7.8); Neutrophils % 73.7 % (37.0-80.0); Platelet Count 290 K/mm3 (142-424); Red Blood Count 4.25 M/mm3 (4.20-5.40); Red Cell Distribution Width 22.8 % (11.5-17.5); White Blood Count 6.5 K/mm3 (4.8-10.8)
[2022-05-17 12:22] LABS: Anion Gap 11.5 mEq/L (5-15); Blood Urea Nitrogen 18 mg/dl (7-17); Calcium 8.4 mg/dl (8.4-10.2); Carbon Dioxide 26 mmol/L (22.0-30.0); Chloride 104 mmol/L (98-107); Estimated Glomerular Filt Rate 53 ml/min (>60); GFR (African American) 64 ML/MIN (>60); Glucose 103 mg/dl (74-100); Potassium 3.5 mmoL/L (3.5-5.1); Sodium 138 mmol/L (136-145)
== END ==
PROVIDERS: PCP Internal Medicine Adolescent Medicine; Visit Provider Internal Medicine Adolescent Medicine
DX: R06.09 Other forms of dyspnea (principal)
CPT/HCPCS: 36415; 80048; 85025

== ENCOUNTER → 2022-05-19 15:31 | Outpatient (CLI) | payer MEDICARE, SELFPAY ==
[2022-05-19 16:24] LABS: Basophils # 0.1 K/mm3 (0-0.2); Basophils % 0.6 % (0.1-2.0); Eosinophils # 0.3 K/mm3 (0.0-0.4); Hematocrit 32.1 % (37.0-47.0); Hemoglobin 10.3 g/dL (12.2-16.2); Lymphocytes # 1.6 K/mm3 (0.7-4.5); Lymphocytes % 19.8 % (10-50); Mean Corpuscular Hemoglobin 24.3 pg (27.0-31.2); Mean Platelet Volume 8.4 fl (7.4-10.4); Monocytes # 0.5 K/mm3 (0.1-1.0); Monocytes % 5.9 % (1.7-9.3); Neutrophils # 5.9 K/mm3 (1.8-7.8); Neutrophils % 70.8 % (37.0-80.0); Platelet Count 298 K/mm3 (142-424); Red Blood Count 4.23 M/mm3 (4.20-5.40); Red Cell Distribution Width 23.4 % (11.5-17.5); White Blood Count 8.3 K/mm3 (4.8-10.8)
[2022-05-19 17:30] LABS: Anion Gap 11.1 mEq/L (5-15); Blood Urea Nitrogen 15 mg/dl (7-17); Carbon Dioxide 26 mmol/L (22.0-30.0); Chloride 104 mmol/L (98-107); Estimated Glomerular Filt Rate 60 ml/min (>60); GFR (African American) 72 ML/MIN (>60); Glucose 89 mg/dl (74-100); Potassium 4.1 mmoL/L (3.5-5.1); Sodium 137 mmol/L (136-145)
== END ==
PROVIDERS: PCP Internal Medicine Adolescent Medicine; Visit Provider Internal Medicine Adolescent Medicine
DX: D64.9 Anemia, unspecified (principal)
CPT/HCPCS: 36415; 80048; 85025

== ENCOUNTER → 2022-07-21 17:39 | Outpatient (CLI) | payer MEDICARE, OTHER, SELFPAY ==
[2022-07-21 18:23] LABS: Chloride 106 mmol/L (98-107)
[2022-07-21 18:24] LABS: Sodium 137 mmol/L (136-145)
[2022-07-21 18:26] LABS: Alanine Aminotransferase 17 U/L (12-78); Aspartate Amino Transferase 27 U/L (14-36); Bilirubin,Total 0.3 mg/dl (0.2-1.3); Blood Urea Nitrogen 20 mg/dl (7-17); Estimated Glomerular Filt Rate 60 ml/min (>60); GFR (African American) 72 ML/MIN (>60)
[2022-07-21 18:27] LABS: Albumin/Globulin Ratio 1.4 (1.1-1.8); Alkaline Phosphatase 51 U/L (38-126); Calcium 8.5 mg/dl (8.4-10.2); Carbon Dioxide 24 mmol/L (22.0-30.0); Globulin 2.9 g/dL (1.3-3.2); Glucose 135 mg/dl (74-100); Total Protein,Serum 6.9 g/dl (6.3-8.2)
[2022-07-21 18:53] LABS: Basophils # 0.1 K/mm3 (0-0.2); Basophils % 0.7 % (0.1-2.0); Eosinophils # 0.4 K/mm3 (0.0-0.4); Eosinophils % 3.9 % (0.1-12.0); Hematocrit 29.5 % (37.0-47.0); Hemoglobin 8.9 g/dL (12.2-16.2); Lymphocytes % 17.4 % (10-50); Mean Corpuscular HGB Conc 30.2 g/dL (31.8-35.4); Mean Corpuscular Hemoglobin 21.5 pg (27.0-31.2); Mean Corpuscular Volume 71.3 fl (81-99); Mean Platelet Volume 8.3 fl (7.4-10.4); Monocytes # 0.6 K/mm3 (0.1-1.0); Neutrophils # 8.2 K/mm3 (1.8-7.8); Platelet Count 403 K/mm3 (142-424); Red Blood Count 4.14 M/mm3 (4.20-5.40); Red Cell Distribution Width 19.6 % (11.5-17.5); White Blood Count 11.2 K/mm3 (4.8-10.8)
== END ==
PROVIDERS: PCP Internal Medicine Adolescent Medicine; Visit Provider Internal Medicine Adolescent Medicine
DX: Z86.2 Personal history of diseases of the blood and blood-forming organs and certain disorders involving the immune mechanism (principal)
CPT/HCPCS: 36415; 80053; 85025

== ENCOUNTER → 2022-07-23 09:35 | Outpatient (CLI) | payer MEDICARE, OTHER, SELFPAY ==
[2022-07-23 11:36] LABS: Basophils # 0.1 K/mm3 (0-0.2); Basophils % 0.7 % (0.1-2.0); Eosinophils # 0.7 K/mm3 (0.0-0.4); Eosinophils % 7.7 % (0.1-12.0); Hematocrit 29.9 % (37.0-47.0); Lymphocytes # 1.5 K/mm3 (0.7-4.5); Lymphocytes % 17.7 % (10-50); Mean Corpuscular Hemoglobin 21.7 pg (27.0-31.2); Mean Corpuscular Volume 72.3 fl (81-99); Mean Platelet Volume 7.9 fl (7.4-10.4); Monocytes # 0.4 K/mm3 (0.1-1.0); Monocytes % 5.1 % (1.7-9.3); Neutrophils % 68.9 % (37.0-80.0); Platelet Count 380 K/mm3 (142-424); Red Blood Count 4.13 M/mm3 (4.20-5.40); Red Cell Distribution Width 19.2 % (11.5-17.5); White Blood Count 8.7 K/mm3 (4.8-10.8)
== END ==
PROVIDERS: PCP Internal Medicine Adolescent Medicine; Visit Provider Internal Medicine Adolescent Medicine
DX: I10 Essential (primary) hypertension (principal); Z86.2 Personal history of diseases of the blood and blood-forming organs and certain disorders involving the immune mechanism
CPT/HCPCS: 36415; 85025

== ENCOUNTER → 2022-07-28 11:43 | Outpatient (CLI) | payer MEDICARE, OTHER, SELFPAY ==
[2022-07-28 12:13] LABS: Basophils # 0.1 K/mm3 (0-0.2); Basophils % 0.9 % (0.1-2.0); Eosinophils # 0.6 K/mm3 (0.0-0.4); Eosinophils % 9.2 % (0.1-12.0); Hematocrit 29.3 % (37.0-47.0); Hemoglobin 8.7 g/dL (12.2-16.2); Lymphocytes # 1.5 K/mm3 (0.7-4.5); Lymphocytes % 25.3 % (10-50); Mean Corpuscular HGB Conc 29.6 g/dL (31.8-35.4); Mean Corpuscular Hemoglobin 21.4 pg (27.0-31.2); Mean Corpuscular Volume 72.4 fl (81-99); Mean Platelet Volume 8.2 fl (7.4-10.4); Monocytes # 0.3 K/mm3 (0.1-1.0); Monocytes % 5.4 % (1.7-9.3); Neutrophils # 3.6 K/mm3 (1.8-7.8); Neutrophils % 59.3 % (37.0-80.0); Platelet Count 417 K/mm3 (142-424); Red Blood Count 4.05 M/mm3 (4.20-5.40); Red Cell Distribution Width 18.9 % (11.5-17.5)
== END ==
PROVIDERS: PCP Internal Medicine Adolescent Medicine; Visit Provider Internal Medicine Adolescent Medicine
DX: Z86.2 Personal history of diseases of the blood and blood-forming organs and certain disorders involving the immune mechanism (principal)
CPT/HCPCS: 36415; 85025

== ENCOUNTER → 2022-09-09 09:55 | Outpatient (CLI) | payer MEDICARE, OTHER, SELFPAY | PROVIDERS: PCP Internal Medicine Adolescent Medicine; Visit Provider Student in an Organized Health Care Education/Training Program | DX: Z01.810 Encounter for preprocedural cardiovascular examination (principal); R06.02 Shortness of breath | CPT/HCPCS: 93306 ==

== ENCOUNTER 2022-09-11 21:56 | Emergency (ER) | payer MEDICARE, OTHER, SELFPAY ==
[2022-09-11 21:58] VITALS: BP 192/89; PULSE 87; RESP 16; TEMP 36.9; O2SAT 98; BMI 25.0
[2022-09-11 22:26] LABS: Basophils % 0.6 % (0.1-2.0); Eosinophils # 0.5 K/mm3 (0.0-0.4); Eosinophils % 6.2 % (0.1-12.0); Hematocrit 26.5 % (37.0-47.0); Hemoglobin 8.1 g/dL (12.2-16.2); Lymphocytes % 26.4 % (10-50); Mean Corpuscular HGB Conc 30.6 g/dL (31.8-35.4); Mean Corpuscular Hemoglobin 19.4 pg (27.0-31.2); Mean Corpuscular Volume 63.5 fl (81-99); Mean Platelet Volume 8.4 fl (7.4-10.4); Monocytes # 0.5 K/mm3 (0.1-1.0); Monocytes % 7.1 % (1.7-9.3); Neutrophils # 4.4 K/mm3 (1.8-7.8); Neutrophils % 59.8 % (37.0-80.0); Platelet Count 377 K/mm3 (142-424); Red Blood Count 4.18 M/mm3 (4.20-5.40); Red Cell Distribution Width 17.9 % (11.5-17.5); White Blood Count 7.4 K/mm3 (4.8-10.8)
[2022-09-11 22:37] LABS: Chloride 100 mmol/L (98-107); Potassium 3.9 mmoL/L (3.5-5.1); Sodium 135 mmol/L (136-145)
[2022-09-11 22:40] LABS: Alanine Aminotransferase 15 U/L (12-78); Albumin/Globulin Ratio 1.5 (1.1-1.8); Alkaline Phosphatase 46 U/L (38-126); Anion Gap 11.9 mEq/L (5-15); Aspartate Amino Transferase 25 U/L (14-36); Bilirubin,Total 0.3 mg/dl (0.2-1.3); Blood Urea Nitrogen 16 mg/dl (7-17); Calcium 8.4 mg/dl (8.4-10.2); Carbon Dioxide 27 mmol/L (22.0-30.0); Creatinine Clearance Estimated 46 mL/min (50-200); Estimated Glomerular Filt Rate 69 ml/min (>60); GFR (African American) 83 ML/MIN (>60); Globulin 2.7 g/dL (1.3-3.2); Glucose 103 mg/dl (74-100); Total Protein,Serum 6.7 g/dl (6.3-8.2)
--- NOTE | 2022-09-11 22:48 | HMH.EDGENADL ---
Discharge Plan Disposition Patient Disposition: Home, Self-Care Condition: Good Chief Complaint: Weakness Prescriptions Prescriptions: No Action metoprolol tartrate 50 MG tablet 50 mg PO BID pantoprazole 20 MG tablet,delayed release (DR/EC) 40 mg PO HS famotidine 20 MG tablet 20 mg PO BID 0RF ascorbic acid (vitamin C) 500 MG tablet 500 mg PO QID 0RF zinc sulfate 220 MG capsule 220 mg PO DAILY 0RF Referrals Follow up/Referrals: Agustín Gentile MD [Primary Care Provider] - See instructions Clinical Impressions Clinical Impression: Anemia, Malaise Instructions Patient Instructions: Anemia, DI for Fatigue Print Language Print Language: Dominican Discharge ED Provider: Eliezer Geller General Adult HPI General Chief complaint: Weakness Stated complaint: phy ref, wants blood count checked Time Seen by Provider: 09/11/22 23:46 Mode of Arrival: Ambulatory Source of Information: Patient Limitations: No Limitations Description of Symptoms (Recalled from ER Triage Doc. by RN): pt states that haD H&H checked eariler this week by lindsey was low but surgeron didnt want to transfuse until surgery for tumor removal on monday. pt c/o increasing weakness and Delgado History of Present Illness HPI narrative: Patient presents to the emergency department generalized malaise. She was found to have some anemia earlier this week and her surgeon instructed her to come to a local emergency department for lab work. 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 Patient describes increased weakness and generalized malaise over the past few days. Denies any fever, chills, cough, congestion, dysuria, hematochezia, melena. Related Data Home Medications Medication Instructions Recorded Confirmed metoprolol tartrate 50 mg tablet 50 mg PO BID Hypertension 06/21/20 05/14/22 pantoprazole 20 mg tablet,delayed 40 mg PO HS GERD 06/21/20 05/14/22 release Previous Rx's Medication Instructions Recorded ascorbic acid (vitamin C) 500 mg 500 mg PO QID 06/24/20 tablet famotidine 20 mg tablet 20 mg PO BID 06/24/20 zinc sulfate 50 mg zinc (220 mg) 220 mg PO DAILY 06/24/20 capsule Allergies Allergy/AdvReac Type Severity Reaction Status Date / Time cephalexin [From Keflex] Allergy TINGLING Verified 05/13/22 16:17 OF THE HANDS PFSH PFSH Disclaimer: The information contained in this section may have been updated after the patient was seen, as this information can be updated by other users. Medical History Asthma Cataract Emphysema/COPD History of anemia Family History (Updated 05/13/22 @ 18:41 by Josette Frausto RN) Other Family history of cancer Social History (Updated 05/15/22 @ 08:03 by Christen Ortega CRNA) Smoking Status: Never smoker alcohol intake: never substance use type: denies use current occupational status: retired Travel in the last 8 weeks: None household members: none housing: house ROS Obtained: Yes All systems reviewed & no additional complaints except as documented Constitutional Constitutional: Reports malaise Physical Exam General General appearance: alert and in no apparent distress Head Head exam: atraumatic and normocephalic Eye Eye exam: Present normal appearance, PERRL and EOMI Respiratory Respiratory exam: Present normal lung sounds bilaterally Cardiovascular Cardiovascular exam: Present regular rate and normal rhythm Abdominal Exam Abdominal exam: Present soft and other (Nondistended. No significant abdominal tenderness. No guarding. No rebound) Extremities Exam Extremities exam: Present normal inspection Neurological Exam Neurological exam: Present alert and oriented X3 Psychiatric Psychiatric exam: Present normal affect and normal mood Skin Skin exam: Present warm and dry Medical Decision Making Medical Records Medical
[2022-09-11 23:07] LABS: Microscopic, Urine URINE MICROSCOPIC (MICROSCOPIC)
[2022-09-11 23:32] LABS: Appearance,Urine CLEAR (Clear); Bilirubin,Urine Negative (Negative); Blood, Urine Negative (Negative); Color,Urine YELLOW (Yellow); Glucose,Urine (UA) Negative (Negative); Ketones,Urine Negative (Negative); Leukocyte Esterase,Urine TRACE (Negative); Nitrate,Urine Negative (Negative); Protein,Urine Negative (Negative); Urobilinogen,Urine 0.2 EU/dl (0.2)
[2022-09-11 23:42] LABS: Squamous Epithelial Cell,Urine Occasional #/hpf (0-5); WBC,Urine Occasional #/hpf (0-3)
[2022-09-11 23:48] VITALS: BP 142/58; PULSE 81; RESP 16; TEMP 36.9; O2SAT 98
== END 2022-09-11 23:53 | disposition home or self-care (01) ==
PROVIDERS: Emergency Provider Emergency Medicine; PCP Internal Medicine Adolescent Medicine
DX: D64.9 Anemia, unspecified (principal)
CPT/HCPCS: 80053; 81001; 85025; 86850; 96374; 96375; 99284; 99285

== ENCOUNTER 2022-11-06 20:34 | Emergency (ER) | payer MEDICARE, OTHER, SELFPAY ==
[2022-11-06 20:41] VITALS: BP 173/106; PULSE 72; RESP 16; TEMP 36.4; O2SAT 97; BMI 23.9
--- NOTE | 2022-11-06 20:43 | XR_ITS ---
PROCEDURE INFORMATION: Exam: XR Chest Exam date and time: 11/06/2022 8:46 PM Age: 81 years old Clinical indication: Pain; Chest pressure; Additional info: Chest pain TECHNIQUE: Imaging protocol: Radiologic exam of the chest. Views: 2 views. COMPARISON: CR XR CHEST PORTABLE 05/13/2022 4:39 PM FINDINGS: Lungs: Unremarkable. No consolidation. Pleural spaces: Unremarkable. No pleural effusion. No pneumothorax. Heart/Mediastinum: Unremarkable. No cardiomegaly. Bones/joints: Unremarkable. IMPRESSION: No acute findings.
--- NOTE | 2022-11-06 20:43 | CT_ITS ---
PROCEDURE INFORMATION: Exam: CT Head Without Contrast Exam date and time: 11/06/2022 9:00 PM Age: 81 years old Clinical indication: Pain; Dizziness; Headache; Additional info: Frequent headache TECHNIQUE: Imaging protocol: Computed tomography of the head without contrast. Radiation optimization: All CT scans at this facility use at least one of these dose optimization techniques: automated exposure control; mA and/or kV adjustment per patient size (includes targeted exams where dose is matched to clinical indication); or iterative reconstruction. REPORTING DATA: Count of CT and Cardiac NM exams in prior 12 months: This patient has received 0 known CTs and 0 known cardiac nuclear medicine studies in the 12 months prior to the current study. COMPARISON: No relevant prior studies available. FINDINGS: Brain: Chronic underlying periventricular white matter changes and parenchymal cortical volume loss. Cerebral ventricles: No ventriculomegaly. Paranasal sinuses: Chronic mucosal thickening of maxillary and ethmoid sinuses. No fluid opacification. Mastoid air cells: Visualized mastoid air cells are well aerated. Bones/joints: Unremarkable. No acute fracture. Soft tissues: Unremarkable. IMPRESSION: 1. No acute intracranial findings by CT criteria. Underlying periventricular white matter changes. 2. Chronic sinus congestion/sinusitis.
--- NOTE | 2022-11-06 20:43 | ECG_ITS ---
APPROVED REPORT Exam: Resting ECG HR:73 bpm ECG Measurements Heart Rate 73 AXES WY 167 P 41 QRSd 91 QRS -7 QT 376 T 67 QTc 402 Conclusion SINUS RHYTHM WITH SINUS ARRHYTHMIA MINIMAL ST DEPRESSION [0.025+ mV ST DEPRESSION] BORDERLINE ECG UNCONFIRMED REPORT Electronically signed by : Agustín Gentile MD 11/08/2022 20:14:08
[2022-11-06 20:46] VITALS: BP 152/90; BP 166/79; BP 171/85; PULSE 62; PULSE 67; PULSE 79
[2022-11-06 20:54] LABS: Basophils % 0.2 % (0.1-2.0); Eosinophils # 0.5 K/mm3 (0.0-0.4); Eosinophils % 5.9 % (0.1-12.0); Hematocrit 34.6 % (37.0-47.0); Hemoglobin 10.7 g/dL (12.2-16.2); Lymphocytes # 2.1 K/mm3 (0.7-4.5); Lymphocytes % 24.5 % (10-50); Mean Corpuscular Hemoglobin 22.1 pg (27.0-31.2); Mean Corpuscular Volume 71.1 fl (81-99); Mean Platelet Volume 7.9 fl (7.4-10.4); Monocytes # 0.5 K/mm3 (0.1-1.0); Monocytes % 6.2 % (1.7-9.3); Neutrophils # 5.5 K/mm3 (1.8-7.8); Neutrophils % 63.2 % (37.0-80.0); Platelet Count 316 K/mm3 (142-424); Red Blood Count 4.86 M/mm3 (4.20-5.40); Red Cell Distribution Width 23.4 % (11.5-17.5); White Blood Count 8.7 K/mm3 (4.8-10.8)
[2022-11-06 20:58] LABS: Alanine Aminotransferase 24 U/L (12-78); Albumin Level 4.5 g/dl (3.5-5.0); Alkaline Phosphatase 54 U/L (38-126); Aspartate Amino Transferase 32 U/L (14-36); Bilirubin,Indirect 0.3 mg/dL (0.0-0.9); Bilirubin,Total 0.3 mg/dl (0.2-1.3); Bilirubin,Unconjugated 0.4 mg/dL (0.0-1.1); Blood Urea Nitrogen 19 mg/dl (7-17); Calcium 9.1 mg/dl (8.4-10.2); Carbon Dioxide 26 mmol/L (22.0-30.0); Chloride 94 mmol/L (98-107); Creatinine Clearance Estimated 44 mL/min (50-200); Estimated Glomerular Filt Rate 80 ml/min (>60); GFR (African American) 97 ML/MIN (>60); Glucose 114 mg/dl (74-100); Sodium 134 mmol/L (136-145); Total Protein,Serum 8.4 g/dl (6.3-8.2)
--- NOTE | 2022-11-06 21:02 | PC.NURSE ---
Pt returned from RAD
--- NOTE | 2022-11-06 21:05 | HMH.EDCP ---
Discharge Plan Disposition Patient Disposition: Left Against Medical Advice Chief Complaint: Chest Pain Prescriptions Prescriptions: No Action metoprolol tartrate 50 MG tablet 50 mg PO BID pantoprazole 20 MG tablet,delayed release (DR/EC) 40 mg PO HS famotidine 20 MG tablet 20 mg PO BID 0RF ascorbic acid (vitamin C) 500 MG tablet 500 mg PO QID 0RF zinc sulfate 220 MG capsule 220 mg PO DAILY 0RF Referrals Follow up/Referrals: Agustín Gentile MD [Primary Care Provider] - See instructions Clinical Impressions Clinical Impression: Chest pain, Vertigo Instructions Patient Instructions: DI for Vertigo Discharge ED Provider: Camille (ED),Rahul Li Chest Pain HPI General Chief Complaint: Chest Pain Stated Complaint: chest pain Time Seen by Provider: 11/06/22 20:50 Mode of Arrival: Ambulatory Source of Information: Patient, Relative and Medical Record Limitations: No Limitations Description of Symptoms (Recalled from ER Triage Doc. by RN): pt reports that she has intermitant chest pain 0/10 right now. pt states that she has a headache since her metoprolol was changed from 50mg bid to 75mg bid History of Present Illness HPI narrative: pt with hx of a fib with occ episodes of chest pain and assoc dizzyness and ko - over the last week - pt assoc this with change in meds - pt is seeing card at - pt reports intermittent chest pain over the last weeks - no trauma/rash or fever complaint: chest pain indicative of cardiac Onset (ago): day(s) Duration: intermittent Activity at onset: during rest Pain location: substernal Severity: moderate Risk Factors for CAD: Hypertension and Family Hx of CAD Treatments prior to or on arrival for Cardiac Chest Pain: none NATALIA Score for Non-Stemi Age of Patient: 80-89 years old Heart Rate: 50-69 bpm Systolic Blood Pressure: 160-199 mmHg Serum Creatinine: 0.40-0.79 mg/dl CHF Kill[place] Class: I-No CHF Other Risk Factors: None Non-Stemi Risk Score: 108 Risk Stratification: 1-108 = Low Risk Related Data Home Medications Medication Instructions Recorded Confirmed metoprolol tartrate 50 mg tablet 50 mg PO BID Hypertension 06/21/20 05/14/22 pantoprazole 20 mg tablet,delayed 40 mg PO HS GERD 06/21/20 05/14/22 release Previous Rx's Medication Instructions Recorded ascorbic acid (vitamin C) 500 mg 500 mg PO QID 06/24/20 tablet famotidine 20 mg tablet 20 mg PO BID 06/24/20 zinc sulfate 50 mg zinc (220 mg) 220 mg PO DAILY 06/24/20 capsule Allergies Allergy/AdvReac Type Severity Reaction Status Date / Time cephalexin [From Keflex] Allergy TINGLING Verified 05/13/22 16:17 OF THE HANDS PFSH [facility] Disclaimer: The information contained in this section may have been updated after the patient was seen, as this information can be updated by other users. Medical History Asthma Cataract Emphysema/COPD History of anemia Family History (Updated 05/13/22 @ 18:41 by Josette Frausto RN) Other Family history of cancer Social History (Updated 05/15/22 @ 08:03 by Christen Ortega CRNA) Smoking Status: Never smoker alcohol intake: never substance use type: denies use current occupational status: retired Travel in the last 8 weeks: None household members: none housing: house ROS Obtained: Yes All systems reviewed & no additional complaints except as documented Physical Exam General General appearance: alert Head Head exam: normocephalic Eye Eye exam: Present PERRL and EOMI; Absent nystagmus ENT ENT exam: Present mucous membranes moist Neck Neck exam: Present trachea midline Respiratory Respiratory exam: Present normal lung sounds bilaterally; Absent respiratory distress Cardiovascular Cardiovascular exam: Present regular rate, systolic murmur and +S4 Abdominal Exam Abdominal exam: Present soft Extremities Exam Extremities exam: Present full ROM
[2022-11-06 21:06] VITALS: BP 175/90; PULSE 66; O2SAT 97
[2022-11-06 21:12] LABS: Troponin I < 0.01 ng/ml (0.00-0.034)
[2022-11-06 21:30] VITALS: BP 160/84; PULSE 65; O2SAT 93
--- NOTE | 2022-11-06 21:42 | PC.NURSE ---
Dr Obrien at bedside s/w pt about a admission. She declines to be admitted here. She reports I get me care at and will just go there . Reports, her son reports She has a new a doctor, she is not seeing Dr. Gentile anymore . Dr. Obrien reports if she'd like to leave she would have to sign out AMA. Pt stated she wishes to do this.
[2022-11-06 21:55] VITALS: BP 160/84; PULSE 64; RESP 18; TEMP 36.6; O2SAT 98
== END 2022-11-06 21:55 | disposition left against medical advice (07) ==
PROVIDERS: Emergency Provider Emergency Medicine; PCP Internal Medicine Adolescent Medicine
DX: R07.9 Chest pain, unspecified (principal); R42 Dizziness and giddiness; R51.9 Headache, unspecified; I10 Essential (primary) hypertension; I48.91 Unspecified atrial fibrillation; J44.9 Chronic obstructive pulmonary disease, unspecified
CPT/HCPCS: 70450; 71046; 80048; 80076; 84484; 85025; 93005; 99285

== ENCOUNTER → 2022-12-27 15:35 | Outpatient (CLI) | payer MEDICARE, OTHER, SELFPAY ==
[2022-12-27 16:52] LABS: Free T4 (Free Thyroxine) 1.41 ng/dl (0.78-2.19)
[2022-12-27 17:08] LABS: Thyroid Stimulating Hormone 3.07 uIU/mL (0.465-4.68)
== END ==
PROVIDERS: PCP Internal Medicine; Visit Provider Internal Medicine
DX: D64.9 Anemia, unspecified (principal); Z79.899 Other long term (current) drug therapy
CPT/HCPCS: 84439; 84443

== ENCOUNTER → 2023-01-20 11:00 | Outpatient (CLI) | payer MEDICARE, OTHER, SELFPAY ==
[2023-01-20 15:02] LABS: Adenovirus,PCR Not Detected (NotDetected); Bordetella Pertussis Not Detected (NotDetected); Chlamydophila Pneumoniae, PCR Not Detected (NotDetected); Coronavirus 19, PCR Not Detected (NotDetected); Coronavirus 229E Not Detected (NotDetected); Coronavirus NL63 Not Detected (NotDetected); Coronavirus OC43 Not Detected (NotDetected); Coronovirus HKU1,PCR Not Detected (NotDetected); Human Metapneumovirus Not Detected (NotDetected); Influenza A, PCR Not Detected (NotDetected); Influenza AH1, 2009 Not Detected (NotDetected); Influenza AH1, PCR Not Detected (NotDetected); Influenza AH3,PCR Not Detected (NotDetected); Influenza B, PCR Not Detected (NotDetected); Mycoplasma Pneumoniae, PCR Not Detected (NotDetected); Parainfluenza 1, PCR Not Detected (NotDetected); Parainfluenza 2, PCR Not Detected (NotDetected); Parainfluenza 3, PCR Not Detected (NotDetected); Parainfluenza 4, PCR Not Detected (NotDetected); Respiratory Syncytial Virus Not Detected (NotDetected); Rhinovirus/Enterovirus Not Detected (NotDetected)
== END ==
PROVIDERS: PCP Internal Medicine; Visit Provider Internal Medicine
DX: R05.3 Chronic cough (principal); R06.02 Shortness of breath
CPT/HCPCS: 87581; 87632; 87798

== ENCOUNTER 2023-05-30 12:49 | Outpatient (CLI) | payer MEDICARE, OTHER, SELFPAY ==
[2023-05-30 13:40] VITALS: PULSE 83; PULSE 87
[2023-05-30] MEDS: ALBUTEROL 0.083% 2.5 MG/3 ML NEB IH (13:40)
--- NOTE | 2023-05-30 14:26 | CT_ITS ---
FINAL REPORT TECHNIQUE: Axial images were obtained from the lung apex to the mid abdomen by computed tomography. Coronal reformatted images were obtained. This study was performed with techniques to keep radiation doses as low as reasonably achievable, (ALARA). Individualized dose reduction techniques using automated exposure control or adjustment of mA and/or kV according to the patient''s size were employed. 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 There is no axillary adenopathy. There are several borderline sized mediastinal nodes. Heart size is normal. There is no pericardial or pleural effusion. There is mild scarring noted. There is a calcified granuloma in the right lower lobe. There are several less than 5 mm left upper lobe nodules including anterior left upper lobe 4 mm nodule seen on image 21. There are several nodules in the medial right middle lobe measuring up to 5 mm. There is a 6 mm left lower lobe nodule seen on image 47. Several other bilateral pulmonary nodules are seen. Limited images of the upper abdomen demonstrate a 5.5 x 4.5 cm mass in the right lateral liver dome which is nonspecific and does not appear to be a cyst. IMPRESSION: Right nonspecific hepatic lobe mass. Recommend liver mass protocol CT or liver MRI. Multiple small nonspecific pulmonary nodules. Recommend chest CT in 6 months. Reviewed, Interpreted and Dictated by Oswaldo Potter III, MD Transcribed by Love Erazo Authenticated and [facility]
== END 2023-05-30 23:59 ==
LOC: RT 12:49
PROVIDERS: PCP Internal Medicine; Visit Provider Internal Medicine Pulmonary Disease
DX: R06.09 Other forms of dyspnea (principal); R91.1 Solitary pulmonary nodule
CPT/HCPCS: 71250; 94060; 94618; 94640; 94726; 94729

== ENCOUNTER 2023-06-23 15:47 | Outpatient (CLI) | payer MEDICARE, OTHER, SELFPAY ==
[2023-06-23 17:21] LABS: Blood Urea Nitrogen 19 mg/dl (7-17); Estimated Glomerular Filt Rate 68 ml/min (>60); GFR (African American) 83 ML/MIN (>60)
== END 2023-06-23 23:59 ==
LOC: LAB 15:49
PROVIDERS: PCP Internal Medicine; Visit Provider Internal Medicine Pulmonary Disease
DX: R16.0 Hepatomegaly, not elsewhere classified (principal)
CPT/HCPCS: 36415; 82565; 84520

== ENCOUNTER 2023-06-26 07:22 | Outpatient (CLI) | payer MEDICARE, OTHER, SELFPAY ==
--- NOTE | 2023-06-26 07:22 | CT_ITS ---
FINAL REPORT CLINICAL HISTORY: Liver mass - need CT Liver Mass Protocol COMPARISON: None FINDINGS: CT ABDOMEN WITH AND WITHOUT CONTRAST: CT examination with and without intravenous contrast was performed in this patient with a mass detected on a CT of the chest in the right lateral dome of the liver. There is an enhancing mass in the right liver that measures 5.3 x 6.0 x 4.4 cm in size. This mass is not typical for a hepatic hemangioma. No other liver lesions are identified. A small hiatal hernia is noted. The spleen, pancreas, adrenals, and kidneys are unremarkable in appearance. The gallbladder is unremarkable without evidence of gallstones. There are surgical clips noted adjacent to the stomach. No free fluid or focal masses identified. IMPRESSION: Enhancing mass in the right liver as described, not typical for hemangioma. This could represent other primary liver tumors or metastases, or could represent an atypical hemangioma. Comparison with prior examinations if available would be helpful. Reviewed, Interpreted and Dictated by Shayy Eduardo MD Transcribed by Ernestina Montoya Authenticated and [facility]
[2023-06-26] MEDS: IOPAMIDOL-370 (76%);100ML BOTTLE 75 ML IV (07:49)
[2023-06-26] MEDS: SODIUM CHLORIDE 0.9% 10ML SYR (RAD ONLY) 10 ML IV (07:49)
== END 2023-06-26 23:59 ==
LOC: RAD 07:22
PROVIDERS: PCP Internal Medicine; Visit Provider Internal Medicine Pulmonary Disease
DX: R16.0 Hepatomegaly, not elsewhere classified (principal)
CPT/HCPCS: 74170; Q9967

== ENCOUNTER 2024-01-22 13:05 | Outpatient (CLI) | payer MEDICARE, OTHER, SELFPAY ==
[2024-01-22 13:07] LABS: Basophils % 0.4 % (0.1-2.0); Eosinophils # 0.6 K/mm3 (0.0-0.4); Eosinophils % 9.3 % (0.1-12.0); Hematocrit 38.1 % (37.0-47.0); Lymphocytes # 1.1 K/mm3 (0.7-4.5); Lymphocytes % 16.6 % (10-50); Mean Corpuscular HGB Conc 31.6 g/dL (31.8-35.4); Mean Corpuscular Hemoglobin 25.3 pg (27.0-31.2); Mean Corpuscular Volume 80.1 fl (81-99); Mean Platelet Volume 8.7 fl (7.4-10.4); Monocytes # 0.3 K/mm3 (0.1-1.0); Monocytes % 4.8 % (1.7-9.3); Neutrophils # 4.4 K/mm3 (1.8-7.8); Neutrophils % 68.8 % (37.0-80.0); Platelet Count 284 K/mm3 (142-424); Red Blood Count 4.76 M/mm3 (4.20-5.40); Red Cell Distribution Width 17.5 % (11.5-17.5); White Blood Count 6.3 K/mm3 (4.8-10.8)
[2024-01-22 13:35] LABS: Alanine Aminotransferase 24 U/L (12-78); Albumin Level 4.5 g/dl (3.5-5.0); Albumin/Globulin Ratio 1.3 (1.1-1.8); Alkaline Phosphatase 49 U/L (38-126); Anion Gap 13.6 mEq/L (5-15); Aspartate Amino Transferase 33 U/L (14-36); Bilirubin,Total 0.5 mg/dl (0.2-1.3); Blood Urea Nitrogen 15 mg/dl (7-17); Calcium 9.4 mg/dl (8.4-10.2); Carbon Dioxide 25 mmol/L (22.0-30.0); Chloride 99 mmol/L (98-107); Chol/HDL Ratio 4.5 (1-3.5); Cholesterol 223 mg/dl (140-200); Estimated Glomerular Filt Rate 80 ml/min (>60); GFR (African American) 96 ML/MIN (>60); Globulin 3.6 g/dL (1.3-3.2); Glucose 119 mg/dl (74-100); HDL Cholesterol 50 mg/dl (40-60); Potassium 4.6 mmoL/L (3.5-5.1); Sodium 133 mmol/L (136-145); Total Protein,Serum 8.1 g/dl (6.3-8.2); Triglycerides 307 mg/dl (30-150); VLDL Cholesterol 61 mg/dL (0-40)
[2024-01-22 13:46] LABS: Direct LDL Cholesterol 128.75 mg/dL (100-129)
[2024-01-22 13:54] LABS: 25-OH Vitamin D, Total 49.1 ng/mL (30-100)
[2024-01-22 14:07] LABS: Thyroid Stimulating Hormone 5.38 uIU/mL (0.465-4.68)
[2024-01-22 14:25] LABS: Free T4 (Free Thyroxine) 1.05 ng/dl (0.78-2.19)
[2024-01-22 14:31] LABS: Vitamin B12 > 1000 pg/mL (239-931)
[2024-01-22 14:41] LABS: Iron 48 ug/dL (37-170)
[2024-01-22 14:50] LABS: Total Iron Binding Capacity 392 ug/dL (265-497)
[2024-01-22 15:17] LABS: Ferritin 12.4 ng/ml (11.1-264)
== END 2024-01-22 23:59 | disposition home or self-care (01) ==
LOC: LAB.DROPOF 13:06
PROVIDERS: PCP Nurse Practitioner Family; Visit Provider Nurse Practitioner Family
DX: E55.9 Vitamin D deficiency, unspecified (principal); D64.9 Anemia, unspecified; I10 Essential (primary) hypertension; E04.1 Nontoxic single thyroid nodule; Z68.26 Body mass index [BMI] 26.0-26.9, adult
CPT/HCPCS: 36415; 80053; 80061; 82306; 82607; 82728; 83540; 83550; 84439; 84443; 85025

== ENCOUNTER 2024-01-31 12:10 | Outpatient (CLI) | payer MEDICARE, OTHER, SELFPAY ==
--- NOTE | 2024-01-31 12:17 | XR_ITS ---
FINAL REPORT CLINICAL HISTORY: left hand pain FINDINGS: Left hand Three views were obtained. There is no acute fracture or dislocation. There are mild and moderate degenerative changes, worst involving the 1st carpometacarpal joint and 3rd DIP joint. No soft tissue abnormality is identified. IMPRESSION: Degenerative changes as above. Reviewed, Interpreted and Dictated by Oswaldo Potter III, MD Transcribed by Renetta Wells Authenticated and [facility] [place] [place]
== END 2024-01-31 23:59 | disposition home or self-care (01) ==
LOC: RAD 12:12
PROVIDERS: PCP Internal Medicine; Visit Provider Orthopaedic Surgery
DX: M79.642 Pain in left hand (principal)
CPT/HCPCS: 73130

== ENCOUNTER 2024-03-14 14:13 | Outpatient (CLI) | payer MEDICARE, OTHER, SELFPAY ==
[2024-03-14 14:25] LABS: Chol/HDL Ratio 4.3 (1-3.5); Cholesterol 232 mg/dl (140-200); HDL Cholesterol 54 mg/dl (40-60); Triglycerides 275 mg/dl (30-150); VLDL Cholesterol 55 mg/dL (0-40)
[2024-03-14 14:36] LABS: Direct LDL Cholesterol 139.19 mg/dL (100-129)
== END 2024-03-14 23:59 | disposition home or self-care (01) ==
LOC: LAB.DROPOF 14:13
PROVIDERS: PCP Nurse Practitioner Family; Visit Provider Nurse Practitioner Family
DX: E78.5 Hyperlipidemia, unspecified (principal)
CPT/HCPCS: 80061

== ENCOUNTER 2024-04-30 10:10 | Outpatient (CLI) | payer MEDICARE, OTHER, SELFPAY ==
[2024-04-30 10:55] LABS: Chol/HDL Ratio 3.2 (1-3.5); Cholesterol 198 mg/dl (140-200); HDL Cholesterol 61 mg/dl (40-60); Triglycerides 145 mg/dl (30-150); VLDL Cholesterol 29 mg/dL (0-40)
[2024-04-30 11:05] LABS: Direct LDL Cholesterol 112.05 mg/dL (100-129)
[2024-04-30 11:27] LABS: Thyroid Stimulating Hormone 4.98 uIU/mL (0.465-4.68)
[2024-04-30 11:36] LABS: Iron 107 ug/dL (37-170)
[2024-04-30 11:45] LABS: Total Iron Binding Capacity 403 ug/dL (265-497)
[2024-04-30 16:42] LABS: Free T4 (Free Thyroxine) 1.29 ng/dl (0.78-2.19)
== END 2024-04-30 23:59 | disposition home or self-care (01) ==
LOC: LAB 10:12
PROVIDERS: PCP Nurse Practitioner Family; Visit Provider Nurse Practitioner Family
DX: D64.9 Anemia, unspecified (principal); E89.0 Postprocedural hypothyroidism; E04.1 Nontoxic single thyroid nodule; E78.5 Hyperlipidemia, unspecified
CPT/HCPCS: 36415; 80061; 82728; 83540; 83550; 84439; 84443

== ENCOUNTER 2025-02-04 12:42 | Outpatient (CLI) | payer MEDICARE, OTHER, SELFPAY ==
--- OUTSIDE RECORDS SUMMARY | 2025-02-04 12:45 | XMS_ITS | Encounter Summary ---
Author Organization Healthcare Address [address] [place] [address] Care Team Providers Care Rewrite Editor Name Role Phone Allan Wallis Edwina DO Primary Care Provider [phone] Glen Lopez MD Unavailable Encounter Details Date Type Department Care Team (Late st Contact Info) Description 06/26/2023 Orders Only External Location [address] [place] [phone] Provider, External Social History Tobacco Use Types Packs/Day Years Used Date Smoking Tobacco: Never Passive Smoke Exposure: Past Smokeless Tobacco: Never Alcohol Use Standard Drinks/Week Comments Never 0 (1 standard drink = 0.6 oz pur e alcohol) PHQ-2 Answer Date Recorded Patient Health Questionnaire-2 Score 0 06/08/2023 PHQ-2A Answer Date Recorded Depression Risk 0 06/08/2023 Comments Unknown Sex and Gender Information Value Date Recorded Sex Assigned at Not on file Legal Sex Female 6:01 PM EDT Gender Identity Not on file Sexual Orientation Not on file documented as of this encounter Plan of Treatment Upcoming Encounters Date Type Department Care Team (Late st Contact Info) Description 09/29/2025 2:00 PM EDT Office Visit [facility] [place] [facility] [address] [facility]. [address] [place] [address] Rosa Ramirez MD [address] [place] [phone] 10/13/2025 8:40 AM EDT Appointment [facility] [address] [place] [address] 10/13/2025 11:00 AM EDT Office Visit [facility] [address] [place] [address] Glen Lopez MD [address] [phone] documented as of this encounter Procedures Procedure Name Priority Date/Time Associated Diagnosis Comments CT OUTSIDE IMAGES 06/26/2023 7:28 AM EST documented in this encounter Results * CT OUTSIDE IMAGES (06/26/2023 7:28 AM EST) Anatomical Region Laterality Modality Computed Tomogra phy 06/26/2023 7:28 AM EST us External Provider IMG CT PROCEDURES Final Result documented in this encounter Visit Diagnoses Not on filedocumented in this encounter Additional Health Concerns Assessment Noted Time A fall risk assessment has been complete d for the patient 06/08/2023 1:15 PM EST A Body Mass Index follow-up plan has been documented for the patient 06/08/2023 1:53 PM EST documented as of this encounter Care Teams Rewrite Editor Relationship Specialty Start Date End Date Allan Wallis DO [address] [facility] [address] [place] [address] PCP - General 06/08/23 Glen Lopez MD [address] [address] Surgeon Surgical Oncology 08/11/23 documented as of this encounter
--- OUTSIDE RECORDS SUMMARY | 2025-02-04 12:46 | XMS_ITS | Encounter Summary ---
Author Organization Healthcare Address [address] [place] [address] Care Team Providers Care Clinical Assessment Manager Name Role Phone Agustín Gentile MD Primary Care Provider [phone] Allan Wallis DO Primary Care Provider [phone] Glen Lopez MD Unavailable [phone] Encounter Details Date Type Department Care Team (Late st Contact Info) Description 08/31/2022 Lab Requisition [facility] [address] [place] [address] Glen Lopez MD [address] [address] Gastritis, unspecified, without bleeding Social History Tobacco Use Types Packs/Day Years Used Date Smoking Tobacco: Never Assessed Comments Unknown Sex and Gender Information Value Date Recorded Sex Assigned at Not on file Legal Sex Female 6:01 PM EDT Gender Identity Not on file Sexual Orientation Not on file documented as of this encounter Plan of Treatment Upcoming Encounters Date Type Department Care Team (Late st Contact Info) Description 09/29/2025 2:00 PM EDT Office Visit [facility] [place] [facility] 800 [facility]. [address] [place] [address] Rosa Ramirez MD [address] [place] [address] 10/13/2025 8:40 AM EDT Appointment [facility] [address] [place] [address] 10/13/2025 11:00 AM EDT Office [facility] [address] [place] [address] Glen Lopez MD [address] [address] documented as of this encounter Procedures Procedure Name Priority Date/Time Associated Diagnosis Comments CYTOLOGY CONSULT Routine 08/31/2022 3:12 PM EDT Gastritis, unspecified, without bleeding documented in this encounter Results * Cytology Consult (08/31/2022 3:12 PM EDT) Case Report Cytology Case: [id number] Authorizing Provider: Glen Lopez, Collected: 08/31/2022 Tahir DENNIS Ordering Location: [facility] Lab Received: 08/31/2022 151Tyler Pathologist: Sandy Alonzo MD Specimen: Gastric, [id number] 09/01/2022 11:17 AM EDT [facility] Final Diagnosis A. 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 Pap stained smear is pauci-cellular with occasional inflammatory cells. Cell block preparation shows a bland spindle cell proliferation some with a vacuolated morphology in a background of blood. Mitosis are not readily observed. Immunohistochemical stains are performed and the tumor cells are positive for CD34, CD117, SMA (strong) and show negativity for calretinin and S100. The morphological and immunohistochemical staining pattern raises the differential diagnosis of a smooth muscle tumor versus a gastrointestinal stromal tumor. Clinical correlation is recommended. 09/01/2022 11:17 AM EDT [facility] Clinical Information K29.70 - Gastritis, unspecified, without bleeding [ICD-10-CM] 09/01/2022 11:17 AM EDT [facility] Gross Description A. [id number] For clinical data and diagnosis (Stromal Tumor) for this specimen ([id number]/Gastric, FNA) see final report issued by [facility] Pathology Department. 09/01/2022 11:17 AM EDT [facility] Fine Needle Aspirate Stomach structure / Unknown 08/31/2022 3:12 PM EDT 08/31/2022 3:12 PM EDT us Glen Lopez MD LAB PATHOLOGY ORDERAB LES Final Result [facility] [address] [place] [address] documented in this encounter Visit Diagnoses Diagnosis Gastritis, unspecified, without bleeding documented in this encounter Care Teams Clinical Assessment Manager Relationship Specialty Start Date End Date Agustín Gentile MD [address] [place] [address] PCP - General 10/09/20 06/07/23 Allan Wallis DO [address] [place] [address] [place] [address] PCP - General 06/08/23 Glen Lopez MD [address] [place] [phone] Surgeon Surgical Oncology 08/11/23 documented as of this encounter
--- OUTSIDE RECORDS SUMMARY | 2025-02-04 12:46 | XMS_ITS ---
Author Organization [facility] Address [address] [place] [address] Care Team Providers Care Senior Telecommunications Engineer Name Role Phone Allan Wallis DO Primary Care Provider [phone] Glen Lopez MD Unavailable Active Problems Problem Noted Date Diagnosed Date Acute blood loss anemia (ABLA) 06/04/2024 Allergic rhinitis 06/04/2024 Bacteriuria 06/04/2024 Chest pain 06/04/2024 Chronic cough 06/04/2024 COPD, group B, by GOLD 2017 classification 06/04 Generalized weakness 06/04/2024 History of partial thyroidectomy 06/04/2024 Malaise 06/04/2024 Melena 06/04/2024 Pneumonia due to COVID-19 virus 06/04/2024 Second hand smoke exposure 06/04/2024 UGIB (upper gastrointestinal bleed) 06/04/2024 UTI (urinary tract infection) 06/04/2024 Vertigo 06/04/2024 Viral syndrome 06/04/2024 Pelvic mass 10/06/2022 Overview (10/13/2022): Pelvic mass - Patient with GIST tumor of stomach diagnosed 08/2022 - CT 09/05/2022 with 5 cm mass less curvature of stomach, 3.1 cm mass in liver c/w metastasis, low attenuation mass abutting uterus (indeterminate) - 09/13/2022: Laparoscopic partial gastrectomy, GIST - 09/15/2022: postop CT unchanged from prior - Initial consult [facility] 10/03/2022 - US 10/03/2022: 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, probably pedunculated left adnexal leiomyoma - Radiology conference: Favor leiomyoma Atrial fibrillation with rapid ventricular respo nse 09/15/2022 Overview (09/18/2022): Reportedly patient has palpitations for years - likely PAF Cards consulted, appreciate recs, f/u outpt with EP Rate/rhythm control strategy with Diltiazem and PO metoprolol Thromboembolic risk as assessed by [id number] Anticoagulation plan pending 09/18 increase PO metop, begin weaning diltiazem gtt Thyroid nodule 09/14/2022 Overview (09/15/2022): Follow up outpatient TSH elevated, T4 normal Anemia 09/14/2022 Overview (09/16/2022): Stable Will continue to monitor Transfuse as appropriate for Hgb>7 Transfused 1u PRBC on 09/13 postop On b-12 at home, restart when appropriate Leukocytosis 09/14/2022 Overview (09/16/2022): Downtrending Multifactorial etiology in post-op setting Trend for now, may require further evaluation in near future Hypertension 09/14/2022 Overview (09/18/2022): Metop 50mg q8hr Asthma 09/14/2022 Overview (09/18/2022): Continue prn albuterol nebs LOVE ipratropium nebs Status post partial gastrectomy 09/14/2022 Overview (09/14/2022): See gastric mass Gastrointestinal stromal tumor (GIST) 09/14/2022 Overview (09/14/2022): See gastric mass Gastric mass 09/05/2022 Overview (09/15/2022): Diagnostic lap, mini ex lap, partial gastrectomy for GIST on 09/13 with [address] Marie in place Current Treatment and Therapy Plans No current plan information found. Past Treatment and Therapy Plans No past plan information found. 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 09/15/2022 Overview (09/15/2022): Replace as needed Monitor with labs Ileus 09/15/2022 09/18/2022 Overview (09/15/2022): Resolved on recent KUB 09/15 Post-op Continue reglan Start suppository OOB, walk TID Hyponatremia 09/15/2022 09/18/2022 Overview (09/16/2022): NA WNL on admit Monitor on daily labs Electrolyte abnormality 09/15/202208/28 Overview (09/15/2022): Replace per ICU sliding scale policy Continue close assessment Congestion of respiratory tract 09/15/2022 09/18/2022 Overview (09/16/2022): C/o congestion & inability to expectorate Order robitussin, mucomyst for 5 days Continue prn albuterol for wheezing and Chest PT Encourage OOBTC and ambulating daily Hypomagnesemia 09/14/2022 09/15/2022 Overview (09/14/2022): Replace as needed Monitor with daily labs
--- OUTSIDE RECORDS SUMMARY | 2025-02-04 12:46 | XMS_ITS | Clinical Summary ---
Author Organization [facility] Address [address] [place] [address] Care Team Providers Care Assembler Deck And Hull Name Role Phone Bimal Allan Bland DO Primary Care Provider [phone] Glen Lopez MD Unavailable Allergies Active Allergy Reactions Criticality Noted Date Comments Albuterol Palpitations Low 09/30/2024 Triggers afib recurrence Cephalexin Itching Medium 09/05/2022 Medications pantoprazole (Protonix) 40 MG EC tablet Take 1 tablet (40 mg) by mouth 1 (one) time each day. 3 Active ascorbic acid (Vitamin C) 1000 MG tablet Take 1 tablet (1,000 mg) by mouth 2 (two) times a day. Active cholecalciferol (Vitamin D-3) 50 MCG (2000 UT) capsule Take 1 capsule (2,000 Units) by mouth 1 (one) time each day. Active cyanocobalamin (Vitamin B-12) 500 MCG tablet Take 1 tablet (500 mcg) by mouth 1 (one) time each day. Active Glucosamine 500 MG capsule Take 500 mg by mouth 1 (one) time each day. Active metoprolol tartrate (Lopressor) 50 MG tablet Take 1 tablet (50 mg) by mouth 2 (two) times a day. 60 tablet 3 Active ipratropium-albu terol (Duo-Neb) 0.5-2.5 mg/3 mL nebulizer solution Take 3 mL by nebulization 1 (one) time if needed. 4 Active budesonide (Pulmicort) 0.25 MG/2ML nebulizer solution Take 2 mL (0.25 mg) by nebulization 2 (two) times a day. Rinse mouth with water after use to reduce aftertaste and incidence of candidiasis. Do not swallow. Active fenofibrate (Tricor) 145 MG tablet 4 Active FeroSul 325 (65 Fe) MG tablet 4 Active formoterol (Perforomist) 20 MCG/2ML nebulizer solution INHALE 2 ML TWICE DAILY 4 Active Vascepa 1 g capsule 4 Active levalbuterol (Xopenex HFA) 45 MCG/ACT inhaler Inhale 1-2 puffs every 6 hours as needed for wheezing. 15 g 11 5 Active apixaban (Eliquis) 5 MG tabletIndication s:Atrial fibrillation with rapid ventricular response (CMS/HCC) Take 1 tablet by mouth 2 times a day. 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 Mark Squires FRAME OPENER, bob in place Resolved Problems Problem Noted Date Diagnosed Date [...] Replace as needed Monitor with daily labs Immunizations Immunization Administration Dates Next Due Influenza, High-dose, Split Virus, Trivalent, Injectable, preservative free 03/14/2024,03/16/2020,02/11/2019 Influenza, injectable, quadrivalent 01/12/2018 Pneumococcal Polysaccharide PPV23 01/12/2018 Family History Medical History Relation Name Comments Skin cancer Father Arthritis Other Hypertension Other Anesthesia problems Neg Hx Malig Hyperthermia Neg Hx Relation Name Status Comments Father Other Social History Tobacco Use Types Packs/Day Years Used Date Smoking Tobacco: Never Passive Smoke Exposure: Past Smokeless Tobacco: Never Tobacco Cessation:Counseling Given: Not Answered Alcohol Use Standard Drinks/Week Comments Never 0 (1 standard drink = 0.6 oz pur e alcohol) PHQ-2 Answer Date Recorded Patient Health Questionnaire-2 Score 0 09/30/2024 PHQ-9 Answer Date Recorded Patient Health Questionnaire-9 Score 1 09/30/2024 PHQ-2A Answer Date Recorded Depression Risk 0 06/08/2023 Comments No Sex and Gender Information Value Date Recorded Sex Assigned at Not on file Legal Sex Female 6:01 PM EDT Gender Identity Not on file Sexual Orientation Not on file Last Filed Vital Signs Vital Sign Reading Time Taken Comments Blood Pressure 186/98 09/30/2024 1:46 PM EDT Pulse 67 09/30/2024 1:40 PM EDT Temperature 36.5 C (97.7 F) 04/04/2024 10:52 AM EST Respiratory Rate 18 01/01/2024 2:05 PM EDT Oxygen Saturation 96% 09/30/2024 1:40 PM EDT Inhaled Oxygen Concentration - - Weight 76.2 kg (168 lb) 10/08/2024 10:25 AM EDT Height 165.1 cm (5' 5 ) 10/08/2024 10:25 AM EDT Body Mass Index 27.96 10/08/2024 10:25 AM EDT Plan of Treatment Upcoming Encounters Date Type Department Care Team (Late st Contact Info) Description 09/29/2025 2:00 PM EDT Office Visit [facility] [place] [address] [facility] [address] [place] [address] Rosa Ramirez MD [address] [place] [address] 10/13/2025 8:40 AM EDT Appointment [facility] [address] [place] [address] 10/13/2025 11:00 AM EDT Office [facility] [address] [place] [address] Glen Lopez MD [address] [address] Health Maintenance Due Date Last Done Comments [facility]-Bone Density Scan 1938 [facility]-Medicare Annual Wellness (AWV) 1938 [facility]-/Child/Adol SDOH Screenings 1938 [facility]- SDOH Screenings 1956 [facility]-Adult SDOH Screenings 1956 [facility]-DTaP,Tdap,and Td Vaccines (1 - Tdap) 1957 [facility]-Hepatitis A Vaccines (1 of 2 - Risk 2-dose series) 1957 [facility]-Zoster Vaccines (1 of 2) 1957 [facility]-RSV Vaccine: 60+ Years or (1 - 1-dose 75+ series) 2013 [facility]-Pneumococcal Vaccine: 50+ Years (2 of 2 - PCV) 01/12/2019 01/12/2018 [id number] Vaccine ( - season) 2025 04/26/2021, 10/08/2020, 09/10/2020 [facility]-Influenza Vaccine (#1) 01/27/202503/14, 03/16/2020, 02/11/2019, Additional history exists [facility]-Depression Screening 09/30/2025 025, 09/30/2024, 06/08/2023 [facility]-Obesity Intervention Completed 025, 09/30/2024, 04/04/2024, Additional history exists HPV Vaccines Aged Out No longer eligi ble based on patient's age to complete this topic [facility]-HIB Vaccines Aged Out No longer e ligible based on patient's age to complete this topic [facility]-IPV Vaccines Aged Out No longer e ligible based on patient's age to complete this topic [facility]-Rotavirus Vaccines Aged Out No lo nger eligible based on patient's age to complete this topic Medical Devices Implanted Type Area Lumber Estimator Device Identifier Shelf Expiration Date Model / Serial / Lot Vip Vascular Closure Device 6 Fr - [id number] Implanted:Qty: 1 on 09/12/2023 by Michael Pulido MD at [facility] [id number] 05/08/2024 [id number] / / [id number] Vip Vascular Closure Device 6 Fr - [id number] Implanted:Qty: 1 on 09/29/2023 by Michael Pulido MD at [facility] [employer] [facility]-[id number] 06/28/2024 [id number] / / [id number] Insurance [address] [place] [address] MEDICARE [facility] MEDICARE SUPPLEMENT Advance Directives * Full Code (Latest Code Status on File) Date Activated Date Inactivated Comments 09/29/2023 9:06 AM 09/30/2023 2:38 AM Question Answer Comments Patient has decision-making capacity? Yes * Full Code Date Activated Date Inactivated Comments 09/13/2022 11:01 AM 09/19/2022 6:46 PM Question Answer Comments Patient has decision-making capacity? Yes Care Teams Assembler Deck And Hull Relationship Specialty Start Date End Date Allan Wallis DO [address] [facility] [address] [id number] PCP - General 06/08/23 Glen Lopez MD [address] [place] [phone] Surgeon Surgical Oncology 08/11/23
--- OUTSIDE RECORDS SUMMARY | 2025-02-04 12:46 | XMS_ITS | Referral Summary ---
Author Organization [employer] ([place], [place], [place], [place]) Address [address] [place] [address] Care Team Providers Care Grinder Set Up Operator Surface Name Role Phone Unavailable Primary Care Provider Unavailabl e Social History Tobacco Use Types Packs/Day Years Used Date Smoking Tobacco: Never Assessed Food Insecurity Answer Date Recorded Food run out past 12 months Not on file 05/29 Food did not last past 12 months Not on file 06/16/2023 Employment Answer Date Recorded Help finding and keeping a job Not on file 0 06/16/2023 Family and Community Support Answer Luis e Recorded Help with Day to Day Activities Not on file 06/16/2023 Feeling Lonely or Isolated Not on file 06/16 Educational Attainment Answer Date Augustus rded Speak language other than Macedonian at home Not on file 06/16/2023 Want help with school or training Not on file 06/16/2023 Substance Use Answer Date Recorded Used prescription meds for non-medical reasons N ot on file 06/16/2023 Used illegal drugs past 12 months Not on file 06/16/2023 Comments Unknown Sex and Gender Information Value Date Recorded Sex Assigned at Not on file Legal Sex Female 4:22 PM CDT Gender Identity Not on file Sexual Orientation Not on file Plan of Treatment Not on file
--- OUTSIDE RECORDS SUMMARY | 2025-02-04 12:46 | XMS_ITS | Clinical Summary ---
Author Organization [facility] ([place], [place], [place], [place]) Address [address] [place] [address] Care Team Providers Care Automotive Parts Salesperson Name Role Phone Unavailable Primary Care Provider [...] Date Augustus rded Speak language other than Martiniquais at home Not on file 06/16/2023 Want [...] Orientation Not on file Plan of Treatment Health Maintenance Due Date Last Done Comments Depression Screening (12+) 1950 Tobacco Cessation Counseling and Screening (12+) 1950 DTAP/TDAP/TD VACCINES (1 - Tdap) 1957 Shingles Vaccine (Zoster) (1 of 2) 1988 Respiratory Syncytial Virus (RSV) Adult or (1 - 1-dose 75+ series) 2013 Pneumococcal 50+ years (2 of 2 - PCV) 01/12/2019 Falls Risk Screening 05/29/2024 COVID-19 VACCINE (4 - 2024- season) 2025 04/26/2021, 10/08/2020, 09/10/2020 Influenza Vaccine (#1) 2025 03/16/2020, 2018
--- OUTSIDE RECORDS SUMMARY | 2025-02-04 12:46 | XMS_ITS | Encounter Summary ---
Author Organization [facility] Address [address] [place] [address] Care Team Providers Care Account Liaison Name Role Phone Agustín Gentile MD Primary Care Provider [phone] Allan Wallis DO Primary Care Provider [phone] Glen Lopez MD Unavailable [phone] Reason for Referral * Consultation (Routine) - Closed Specialty Diagnoses / Procedures Referred By Rica rosales Referred To Contact Surgical Oncology / Hematology and Oncology Diagnoses Gastrointestinal stromal tumor (GIST) of antrum of stomach (CMS/HCC) Colin Craig Joseph, MD [address] [address] Phone: tel: fax: Referral ID Status Reason Start Date Expiration Date V isits Requested Visits Authorized [id number] Closed Specialty Services Required 08/17/2022 02/16/2024 1 1 Encounter Details Date Type Department Care Team (Latest Contact Info) Description 08/17/2022 Community [facility] [address] [place] [address] Colin Craig Gastrointestinal stromal tumor (GIST) of antrum of stomach (CMS/HCC) (Primary Dx) Social History Tobacco Use Types Packs/Day Years [...] Description 09/29/2025 2:00 PM EDT Office Visit [facility] [place] [facility] [address] 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
[2025-02-04 13:07] LABS: Hematocrit 41.8 % (37.0-47.0); Hemoglobin 14.1 g/dL (12.2-16.2); Immature Granulocytes % 0.5 %; Mean Corpuscular HGB Conc 33.7 g/dL (31.8-35.4); Mean Corpuscular Hemoglobin 30.7 pg (27.0-31.2); Mean Corpuscular Volume 90.9 fl (81-99); Nucleated Red Blood Cells % 0 %; Platelet Count 225 K/mm3 (142-424); Red Blood Count 4.60 M/mm3 (4.20-5.40); Red Cell Distribution Width-SD 45.4 fL; White Blood Count 6.5 K/mm3 (4.8-10.8)
[2025-02-04 14:17] LABS: Alanine Aminotransferase 39 U/L (12-78); Albumin Level 4.8 g/dl (3.5-5.0); Albumin/Globulin Ratio 1.5 (1.1-1.8); Alkaline Phosphatase 38 U/L (38-126); Anion Gap 15.2 mEq/L (5-15); Aspartate Amino Transferase 48 U/L (14-36); Bilirubin,Total 0.8 mg/dl (0.2-1.3); Blood Urea Nitrogen 18 mg/dl (7-17); Calcium 10.0 mg/dl (8.4-10.2); Carbon Dioxide 26 mmol/L (22.0-30.0); Chloride 97 mmol/L (98-107); Creatinine,Serum 1.00 mg/dl (0.52-1.04); Estimated Glomerular Filt Rate 53 ml/min (>60); GFR (African American) 64 ML/MIN (>60); Globulin 3.1 g/dL (1.3-3.2); Glucose 103 mg/dl (74-100); Potassium 4.2 mmoL/L (3.5-5.1); Sodium 134 mmol/L (136-145); Total Protein,Serum 7.9 g/dl (6.3-8.2)
== END 2025-02-04 23:59 | disposition home or self-care (01) ==
PROVIDERS: PCP Internal Medicine; Visit Provider Internal Medicine
DX: Z00.00 Encounter for general adult medical examination without abnormal findings (principal); D64.9 Anemia, unspecified; N18.9 Chronic kidney disease, unspecified
CPT/HCPCS: 36415; 80053; 85025